=== PATIENT | female | born 1960 | race Caucasian/White ===

== ENCOUNTER 2018-11-25 09:03 | Observation (INO) | payer BC, OTHER ==
--- NOTE | 2018-11-25 10:20 | RAD REPORT ---
EXAM DESCRIPTION: CT - Head Brain Wo Cont - 11/25/2018 10:00 am CLINICAL HISTORY: DIZZINESS Headache, drowsiness, CVA symptomology. COMPARISON: No comparisons TECHNIQUE: All CT scans are performed using dose optimization technique as appropriate and may inclu de automated exposure control or mA/KV adjustment according to patient size. FINDINGS: No intracranial hemorrhage, hydrocephalus or extra-axial fluid collection.No areas of brai n edema or evidence of midline shift. The paranasal sinuses and mastoids are clear. The calvarium is intact. IMPRESSION: No acute intracranial abnormality.
--- NOTE | 2018-11-25 10:22 | RAD REPORT ---
EXAM DESCRIPTION: RAD - Chest Single View - 11/25/2018 10:10 am CLINICAL HISTORY: COUGH Chest pain. COMPARISON: Chest Single View dated 03/03/2016; CHEST PA AND LAT 2 VIEW dated 11/14/2014; CHEST PA AND LAT 2 VIEW dated 02/19/2013; CHEST PA AND LAT 2 VIEW dated 02/03/2013 FINDINGS: Portable technique limits examination quality. Emphysematous changes are present throughout the lungs. Vague area of nodularity is seen in the left upper lobe, which may represent superimposition of bony structures or a small nodule. The heart is no rmal in size. No displaced fractures.Postsurgical changes are present bilaterally. IMPRESSION: No acute intrathoracic process suspected.
[2018-11-25] MEDS ORDERED: ONDANSETRON 4 MG/2 ML VIAL ONE (10:45)
[2018-11-25] MEDS ORDERED: MECLIZINE HCL 12.5 MG TAB ONE ×2 (10:45→20:54)
[2018-11-25] MEDS ORDERED: NA CHLORIDE 0.9% 1,000 ML ONE (10:45)
[2018-11-25] MEDS ORDERED: FOLIC ACID 5 MG/ML VIAL ONE (10:48)
[2018-11-25 10:54] LABS: Absolute Lymphocytes (CBC) 2.1 K/uL (0.7-4.9); Absolute Monocytes 0.5 K/uL (0.1-1.3); Absolute Neutrophil 1.8 K/uL (1.8-8.0); Basophils % 0.7 % (0-1.3); Hematocrit 48.1 % (36.0-45.0); Lymphocytes % 46.7 % (15.3-44.8); MPV 8.4 fL (7.6-11.3); Monocytes % 10.2 % (3.3-12.3)
[2018-11-25 10:55] LABS: Protime INR 1.06
--- NOTE | 2018-11-25 11:03 | RAD REPORT ---
EXAM DESCRIPTION: - CP - 11/25/2018 10:51 am CLINICAL HISTORY: DIZZINESS Headache, drowsiness COMPARISON: No comparisons TECHNIQUE: Real-time sonographic evaluation of both carotid systems was performed. Doppler interroga tion was performed with waveform tracing bilaterally. FINDINGS: Normal high resistance waveforms are noted in both external carotid arteries. The common c arotid arteries and internal carotid arteries show normal low resistance waveforms. No significant plaque formation is seen. Peak systolic and end diastolic velocity values and the ICA/ CCA ratios are in the non-hemodynamically significant range. Antegrade flow seen in both vertebral arteries. IMPRESSION: No significant atherosclerotic changes noted. No evidence of a hemodynamically significant stenosis.
[2018-11-25 11:17] LABS: ALT/SGPT 20 U/L (12-78); AST/SGOT 18 U/L (15-37); Alkaline Phosphatase 48 U/L (45-117); BUN Blood Urea Nitrogen 17 mg/dL (7-18); Bicarbonate 28 mmol/L (21-32); Bilirubin Direct 0.2 mg/dL (0-0.2); Bilirubin Total 0.7 mg/dL (0.2-1.0); Glucose Level 80 mg/dL (74-106); Lipase 130 U/L (73-393); Magnesium 2.1 mg/dL (1.8-2.4); NT PRO-BNP 96 pg/mL (<125); Potassium 3.8 mmol/L (3.5-5.1); Protein, Total 7.9 g/dL (6.4-8.2); Sodium Level 142 mmol/L (136-145); Troponin (Emerg Dept Use Only) < 0.02 ng/mL (0.0-0.045)
[2018-11-25 12:29] LABS: Blood Morphology Comment NOT SEEN (NOT SEEN); Platelet Estimate ADEQ
[2018-11-25] MEDS ORDERED: ASPIRIN 81 MG CHEWABLE TABLET ONE (13:08)
[2018-11-25 13:16] LABS: Urine Blood TRACE (NEG); Urine Glucose NEGATIVE (NEG); Urine Protein TRACE (NEG); Urine Specific Gravity 1.015 (1.005-1.030); Urine pH 8.5 (5.0-7.0)
--- NOTE | 2018-11-25 13:23 | RAD REPORT ---
EXAM DESCRIPTION: MRI - Brain Wo Cont - 11/25/2018 1:06 pm CLINICAL HISTORY: Dizziness COMPARISON: November 25, [address] TECHNIQUE: Axial, sagittal, and coronal magnetic resonance images of the brain were obtained. FINDINGS: A vague 9 millimeter area of increased signal is present within the left cerebellum. Diffusion-weighted/ADC mapping does not reveal evidence of acute infarction. The ventricles are normal caliber. An extra-axial fluid collection is not noted. Mild cerebellar tonsillar ectopia The sinuses and mastoids are clear. IMPRESSION: A vague 9 millimeter area of increased signal within the left cerebellum does not repres ent an acute infarct. It is of uncertain etiology. It may represent an old infarct. It is recommended that the patient have an MRI brain with IV contrast to determine if there is abnormal enhancement to suggest an acute process Mild cerebellar tonsillar ectopia
--- NOTE | 2018-11-25 15:29 | RAD REPORT ---
EXAM DESCRIPTION: MRI - Brain With Cont - 11/25/2018 3:11 pm CLINICAL HISTORY: vertigo;Dizziness Headache, drowsiness COMPARISON: Brain Wo Cont dated 11/25/2018; Head Brain Wo Cont dated 11/25/2018 TECHNIQUE: Multi-sequence, multiplanar MR imaging of the brain was performed with contrast. FINDINGS: The 9 mm area of signal abnormality seen on recent brain MR in the left cerebellar hemisph ere shows mild post-contrast enhancement. This may indicate that it represents an underlying vascular malformation such as DVA. The lesion does not have space-occupying masslike characteristics, however , a follow-up brain MRI with contrast is recommended in 6 months to ensure stability.
--- NOTE | 2018-11-25 15:43 | EDPHYS ---
Physician Documentation [facility] Name: Mikey Muniz Age: 58 yrs Sex: Female : 1960 Arrival Date: 11/25/2018 Time: 09:05 Bed 6 Private MD: Aries Lopez ED Physician Cristino Barone HPI: 11/25 09:51 This 58 yrs old Female presents to ER via Ambulatory with complaints of judie Vertigo, Heart racing, Facial Numbness. 09:51 The patient complains of pain to the forehead, left temporal area and right temporal judie area. The patient describes the headache as aching. Onset: The symptoms/episode began/occurred 2 day(s) ago. The patient presents with dizziness, sense of spinning. Onset: The symptoms/episode began/occurred 2 day(s) ago. Context: occurred at an unknown location. Associated signs and symptoms: The patient has no apparent associated signs or symptoms. Severity of symptoms: At its worst the pain was mild, in the emergency department the pain is unchanged. Historical: - Allergies: 09: Augmentin; sg 09:23 Codeine; sg 09:23 Demerol; sg 09:23 Morphine; sg 09:23 [place]; sg - Home Meds: :27 gabapentin 300 mg oral cap 1 cap at night for Neuropathic Pain [Active]; Humira Pen sg subcutaneous subcutaneous [Active]; hydroxychloroquine 200 mg oral tab 1 tab once daily [Active]; pantoprazole 40 mg oral TbEC 1 tab once daily [Active]; Prolia subcutaneous subcutaneous [Active]; exemestane oral oral [Active]; - PMHx: 09:23 Ankylosing Spondylitis; Cancer, Breast; neuropathy; Ovarian cyst; sg - PSHx: 09:23 Hysterectomy; Tonsillectomy; Mastectomy, Left; Mastectomy, Right; left knee; D \T\ C; sg left ear; - Immunization history:: Adult Immunizations up to date. - Social history:: Smoking status: Patient/guardian denies using tobacco. - Ebola Screening: : Patient negative for fever greater than or equal to 101.5 degrees Fahrenheit, and additional compatible Ebola Virus Disease symptoms Patient denies exposure to infectious person Patient denies travel to an Ebola-affected area in the 21 days before illness onset No symptoms or risks identified at this time. - Family history:: not pertinent. ROS: 09:51 Constitutional: Negative for fever, chills, and weight loss, Eyes: Negative for injury, judie pain, redness, and discharge, ENT: Negative for injury, pain, and discharge, Neck: Negative for injury, pain, and swelling, Cardiovascular: Negative for chest pain, palpitations, and edema, Respiratory: Negative for shortness of breath, cough, wheezing, and pleuritic chest pain, Abdomen/GI: Negative for abdominal pain, nausea, vomiting, diarrhea, and constipation, Back: Negative for injury and pain, : Negative for injury, bleeding, discharge, and swelling, MS/Extremity: Negative for injury and deformity, Skin: Negative for injury, rash, and discoloration, Psych: Negative for depression, anxiety, suicide ideation, homicidal ideation, and hallucinations, Allergy/Immunology: Negative for hives, rash, and allergies, Endocrine: Negative for neck swelling, polydipsia, polyuria, polyphagia, and marked weight changes, Hematologic/Lymphatic: Negative for swollen nodes, abnormal bleeding, and unusual bruising. 09:51 Neuro: Positive for dizziness. Exam: 09:51 Constitutional: This is a well developed, well nourished patient who is awake, alert, judie and in no acute distress. Head/Face: Normocephalic, atraumatic. Eyes: Pupils equal round and reactive to light, extra-ocular motions intact. Lids and lashes normal. Conjunctiva and sclera are non-icteric and not injected. Cornea within normal limits. Periorbital areas with no swelling, redness, or edema. ENT: Nares patent. No nasal discharge, no septal abnormalities noted. Tympanic membranes are normal and external auditory canals are clear. Oropharynx with no redness, swelling, or masses, exudates, or evidence of obstruction, uvula midline. Mucous membranes moist. Neck: Trachea midline, no thyromegaly or masses palpated, and no cervical lymphadenopathy. Supple, full range of motion without nuchal rigidity, or vertebral point tenderness. No Meningismus. Chest/axilla: Normal chest wall appearance and motion. Nontender with no deformity. No lesions are appreciated. Cardiovascular: Regular rate and rhythm with a normal S1 and S2. No gallops, murmurs, or rubs. Normal PMI, no JVD. No pulse deficits. Respiratory: Lungs have equal breath sounds bilaterally, clear to auscultation and percussion. No rales, rhonchi or wheezes noted. No increased work of breathing, no retractions or nasal flaring. Abdomen/GI: Soft, non-tender, with normal bowel sounds. No distension or tympany. No guarding or rebound. No evidence of tenderness throughout. Back: No spinal tenderness. No costovertebral tenderness. Full range of motion. Skin: Warm, dry with normal turgor. Normal color with no rashes, no lesions, and no evidence of cellulitis. MS/ Extremity: Pulses equal, no cyanosis. Neurovascular intact. Full, normal range of motion. Neuro: Awake and alert, GCS 15, oriented to person, place, time, and situation. Cranial nerves II-XII grossly intact. Motor strength 5/5 in all extremities. Sensory grossly intact. Cerebellar exam normal. Normal gait. Psych: Awake, alert, with orientation to person, place and time. Behavior, mood, and affect are within normal limits. Vital Signs: 09:21 BP 171 / 114; Pulse 86; Resp 17; Temp 97.5; Pulse Ox 100% on R/A; sg 11:30 BP 142 / 92; Pulse 77; Resp 16; Temp 97.6; Pulse Ox 100% on R/A; sg 13:20 sg 14:30 BP 135 / 89; Pulse 72; Resp 14; Pulse Ox 99% on R/A; sg 15:37 BP 110 / 83; Pulse 76; Resp 16; Pulse Ox 98% on R/A; sg 16:19 BP 124 / 97; Pulse 82; Resp 17; Pulse Ox 100% on R/A; sg 19:20 BP 127 / 92; Pulse 76; Resp 18; Pulse Ox 99% on R/A; ao 20:20 BP 120 / 87; Pulse 72; Resp 18; Pulse Ox 99% on R/A; ao 21:08 BP 118 / 84; Pulse 74; Resp 14; Temp 98.2(O); Pulse Ox 100% on R/A; Pain 0/10; ao 13:20 pt remains off the unit in MRI at this [facility] NIH Stroke Scale Scores: 09:51 NIHSS Score: 0 judie MDM: 09:10 Patient medically screened. [facility] [place] 09:54 Data reviewed: vital signs, nurses notes, lab test result(s), EKG, radiologic studies, [facility] [place] CT scan, plain films. 11/25 09:31 Order name: Basic Metabolic Panel; Complete Time: 11:49 [facility] [place] 11/25 09:31 Order name: CBC with Diff; Complete Time: 12:33 [facility] [place] 11/25 09:31 Order name: LFT's; Complete Time: 11:49 [facility] [place] 11/25 09:31 Order name: Magnesium; Complete Time: 11:49 [facility] [place] 11/25 09:31 Order name: NT PRO-BNP; Complete Time: 11:49 [facility] [place] 11/25 09:31 Order name: PT-INR; Complete Time: 11:05 [facility] [place] 11/25 09:31 Order name: Troponin (emerg Dept Use Only); Complete Time: 11:49 [facility] [place] 11/25 09:31 Order name: Lipase; Complete Time: 11:49 [facility] [place] 11/25 09:31 Order name: Urine Culture [facility] [place] 11/25 09:31 Order name: TSH; Complete Time: 11:49 [facility] [place] 11/25 10:55 Order name: Flu; Complete Time: 11:49 11/25 10:59 Order name: Manual Differential; Complete Time: 12:33 [facility] 11/25 12:55 Order name: Urine Dipstick--Ancillary (enter results); Complete Time: 13:20 bd 11/25 19:26 Order name: Creatine Phosphokinase [facility] 11/25 09:31 Order name: XRAY Chest (1 view); Complete Time: 11:05 [facility] [place] 11/25 09:31 Order name: EKG; Complete Time: 09:32 [facility] [place] 11/25 09:31 Order name: CT Head Brain wo Cont; Complete Time: 11:05 [facility] [place] 11/25 09:49 Order name: US Carotid Artery Bilateral; Complete Time: 11:05 [facility] [place] 11/25 11:13 Order name: Brain Wo Cont; Complete Time: 13:36 EDDC 11/25 13:38 Order name: Brain With Cont MRI; Complete Time: 15:33 [facility] [place] 11/25 17:38 Order name: Diet Regular; Complete Time: 17:39 sg 11/25 19:26 Order name: CKMB Creatine Kinase MB [facility] 11/25 19:26 Order name: Troponin I [facility] 11/25 09:31 Order name: Cardiac monitoring; Complete Time: 11:41 [facility] [place] 11/25 09:31 Order name: EKG - Nurse/Tech; Complete Time: 14:48 [facility] [place] 11/25 09:31 Order name: IV Saline Lock; Complete Time: 10:45 [facility] [place] 11/25 09:31 Order name: Labs collected and sent; Complete Time: 10:31 [facility] [place] 11/25 09:31 Order name: O2 Per Protocol; Complete Time: 10:31 [facility] [place] 11/25 09:31 Order name: O2 Sat Monitoring; Complete Time: 10:31 [facility] [place] 11/25 09:31 Order name: Urine Dipstick-Ancillary (obtain specimen); Complete Time: 14:24 [facility] [place] 11/25 11:07 Order name: Vital Signs; Complete Time: 11:23 [facility] [place] Administered Medications: 10:50 Drug: NS 0.9% 1000 ml Route: IV; Rate: 125 ml/hr; Site: right antecubital; sg 20:37 Follow up: IV Status: Infusion continued upon admission ao 10:50 Drug: Zofran 4 mg Route: IVP; Site: right antecubital; sg 12:14 Follow up: Response: No adverse reaction; Nausea is decreased sg 11:02 Drug: foLIC Acid 1 mg Route: IVPB; Site: right antecubital; sg 20:38 Follow up: IV Status: Completed infusion ao 11:20 Drug: Meclizine 25 mg Route: PO; sg 12:15 Follow up: Response: No adverse reaction; No change in condition sg 13:37 Drug: Aspirin 162 mg Route: PO; sg 20:38 Follow up: Response: No adverse reaction ao 21:05 Drug: Meclizine 25 mg Route: PO; ao 21:05 Follow up: Response: Follow up upon admission ao Disposition: 11/25/18 16:04 Hospitalization ordered by Tera Vallejo for Observation. 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 - Bed requested for Telemetry/MedSurg (observation). - Status is Observation. ao - Condition is Fair. - Problem is new. - Symptoms are unchanged. UTI on Admission? No NIH Stroke Scale - NIH Stroke Score Date: 11/25/2018 Time: 09:51 Total Score = 0 1a. Level of Consciousness (LOC) - 0(Alert) 1b. Level of Consciousness (LOC) (Year \T\ Age) - 0(Both) 1c. LOC Commands (Open \T\ Closes Eyes/Fishing Lure Assembler) - 0(Both) 2. Best Gaze (Lateral Gaze Paresis) - 0(Normal) 3. Visual Field Loss - 0(No visual loss) 4. Facial Palsy - 0(Normal) 5a. Left Arm: Motor (10-second hold) - 0(No drift) 5b. Right Arm: Motor (10-second hold) - 0(No drift) 6a. Left Leg: Motor (5-second hold - always test supine) - 0(No drift) 6b. Right Leg: Motor (5-second hold - always test supine) - 0(No drift) 7. Limb Ataxia (finger/nose \T\ heel/cifuentes - test with eyes open) - 0(Absent) 8. Sensory Loss (pinprick arms/legs/face) - 0(Normal) 9. Best Language: Aphasia (description/naming/reading) - 0(No aphasia) 10. Dysarthria (speech clarity - read or repeat words) - 0(Normal) 11. Extinction and Inattention (visual/tactile/auditory/spatial/personal) - 0(No abnormality) Initials: judie Signatures: Dispatcher [employer] [facility] Nessa Santillan RN RN mw Woody, Diana, RN RN dw Gay, Steven, RN RN sg Anderson, Corey, MD MD cha Ortiz, Alex RN RN ao Corrections: (The following items were deleted from the chart) 11:12 09:54 MR STROKE PROTOCOL+MRI.RAD.SUSAN ordered. [facility] 16:00 15:42 11/25/2018 15:42 Discharged to Home. Impression: Palpitations; judie Vertiginous syndromes in diseases classified elsewhere; Essential (primary) hypertension; Abnormal brain scan. Condition is Stable. Discharge Instructions: Dizziness, Hypertension, Palpitations, Vertigo, Hypertension, [id number], Vertigo, Arug-ne-Reuk, Aspirin and Your Heart, Palpitations, [id number], Dizziness, Oije-al-[id number], Managing Your Hypertension. Prescriptions for Meclizine 25 mg Oral Tablet - take 1 tablet by ORAL route every 8 hours As needed; 30 tablet, Norvasc 5 mg Oral Tablet - take 1 tablet by ORAL route once daily; 20 tablet. and Forms are Medication Reconciliation Form, Thank You Letter, Antibiotic Education, Prescription Opioid Use. Follow up: Aries Lopez; When: 2 - 3 days; Reason: Recheck today's complaints, Continuance of care, Re-evaluation by your physician. Follow up: Terrance Chery; When: 2 - 3 days; Reason: Recheck today's complaints, Continuance of care, Re-evaluation by your physician. Problem is new. Symptoms have improved. judie 19:44 16:04 Hospitalization Ordered by Tera Vallejo DO for Observation. 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 Bed requested for Telemetry/MedSurg (observation). Status is Observation. Condition is Fair. Problem is new. Symptoms are unchanged. UTI on Admission? No. judie 20:22 19:44 11/25/2018 16:04 Hospitalization Ordered by Tera Vallejo DO for mw Observation. 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 Bed requested for Telemetry/MedSurg (observation). Status is Observation. Condition is Fair. Problem is new. Symptoms are unchanged. UTI on Admission? No. dw 21:32 20:22 11/25/2018 16:04 Hospitalization Ordered by Tera Vallejo DO for ao Observation. 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 Bed requested for Telemetry/MedSurg (observation). Status is Observation. Condition is Fair. Problem is new. Symptoms are unchanged. UTI on Admission? No. mw
--- NOTE | 2018-11-25 15:43 | ER ---
Nurse's Notes [facility] Name: Mikey Muniz Age: 58 yrs Sex: Female : 1960 Arrival Date: 11/25/2018 Time: 09:05 Bed 6 Private MD: Aries Lopez Diagnosis: Vertiginous syndromes in diseases classified elsewhere-intractable;Vomiting;Essential (primary) hypertension;Abnormal brain scan-mri w/ w/o Presentation: 11/25 09:17 Presenting complaint: Patient states: Numbness to mouth and left lower face that sg started yesterday morning around 0700 took a meclizine and gabapentin but no improvement, dizziness and vertigo that started Sunday morning has happened before and it was due to drainage in the Ear, Saw and told her ears looked fine and wanted a follow up with and a scaffolder. This morning I had a headache that has not gotten any better, also has nausea today. Transition of care: patient was not received from another setting of care. Onset of symptoms was November 25, 2018. Risk Assessment: Do you want to hurt yourself or someone else? Patient reports no desire to harm self or others. Initial Sepsis Screen: Does the patient meet any 2 criteria? No. Patient's initial sepsis screen is negative. Does the patient have a suspected source of infection? No. Patient's initial sepsis screen is negative. Care prior to arrival: None. 09:17 Method Of Arrival: Ambulatory sg 09:17 Acuity: YUE 3 sg Historical: - Allergies: 09: Augmentin; sg 09:23 Codeine; sg :23 Demerol; sg 09:23 Morphine; sg 09:23 [place]; sg - Home Meds: : gabapentin 300 mg oral cap 1 cap at night for Neuropathic Pain [Active]; Humira Pen sg subcutaneous subcutaneous [Active]; hydroxychloroquine 200 mg oral tab 1 tab once daily [Active]; pantoprazole 40 mg oral TbEC 1 tab once daily [Active]; Prolia subcutaneous subcutaneous [Active]; exemestane oral oral [Active]; - PMHx: 09:23 Ankylosing Spondylitis; Cancer, Breast; neuropathy; Ovarian cyst; sg - PSHx: 09:23 Hysterectomy; Tonsillectomy; Mastectomy, Left; Mastectomy, Right; left knee; D \T\ C; sg left ear; - Immunization history:: Adult Immunizations up to date. - Social history:: Smoking status: Patient/guardian denies using tobacco. - Ebola Screening: : Patient negative for fever greater than or equal to 101.5 degrees Fahrenheit, and additional compatible Ebola Virus Disease symptoms Patient denies exposure to infectious person Patient denies travel to an Ebola-affected area in the 21 days before illness onset No symptoms or risks identified at this time. - Family history:: not pertinent. Screenin:25 Abuse screen: Denies threats or abuse. Denies injuries from another. Nutritional hb screening: No deficits noted. Tuberculosis screening: No symptoms or risk factors identified. Fall Risk None identified. Assessment: 09:45 General: Appears in no apparent distress. well groomed, well developed, well nourished, sg Behavior is calm, cooperative, appropriate for age. Pain: Denies pain. Neuro: Level of Consciousness is awake, alert, obeys commands, Oriented to person, place, time, situation, Manager [employer] Services are equal bilaterally Moves all extremities. Full function Speech is normal, Facial symmetry appears normal, Reports dizziness. Cardiovascular: Heart tones S1 S2 present Capillary refill is brisk in bilateral fingers Patient's skin is warm and dry. Chest pain is denied. Respiratory: Airway is patent Respiratory effort is even, unlabored, Respiratory pattern is regular, symmetrical. GI: Abdomen is round non-distended, Reports nausea, tolerance of fluids, tolerance of food. : No signs and/or symptoms were reported regarding the genitourinary system. EENT: No signs and/or symptoms were reported regarding the EENT system. Derm: Skin is pink, warm \T\ dry. Musculoskeletal: No signs and/or symptoms reported regarding the musculoskeletal system. 10:45 Reassessment: Patient appears in no apparent distress at this time. Patient and/or sg family updated on plan of care and expected duration. Pain level reassessed. Patient is alert, oriented x 3, equal unlabored respirations, skin warm/dry/pink. 11:45 Reassessment: Patient appears in no apparent distress at this time. Patient and/or sg family updated on plan of care and expected duration. Pain level reassessed. Patient is alert, oriented x 3, equal unlabored respirations, skin warm/dry/pink. 12:42 Reassessment: Patient appears in no apparent distress at this time. Patient and/or sg family updated on plan of care and expected duration. Pain level reassessed. Patient is alert, oriented x 3, equal unlabored respirations, skin warm/dry/pink. pt continues to complain of dizziness at this time, pt states the meclizine has helped slightly but there has been no relief in the symptoms Patient states symptoms have not improved. 13:40 Reassessment: Patient appears in no apparent distress at this time. Patient and/or sg family updated on plan of care and expected duration. Pain level reassessed. Patient is alert, oriented x 3, equal unlabored respirations, skin warm/dry/pink. Reassessment: Patient states symptoms have not improved. 14:30 Reassessment: Patient appears in no apparent distress at this time. No changes from hb previously documented assessment. Patient and/or family updated on plan of care and expected duration. Pain level reassessed. Patient is alert, oriented x 3, equal unlabored respirations, skin warm/dry/pink. 15:30 Reassessment: Patient appears in no apparent distress at this time. No changes from hb previously documented assessment. Patient and/or family updated on plan of care and expected duration. Pain level reassessed. Patient is alert, oriented x 3, equal unlabored respirations, skin warm/dry/pink. 16:30 Reassessment: Patient appears in no apparent distress at this time. No changes from hb previously documented assessment. Patient and/or family updated on plan of care and expected duration. Pain level reassessed. Patient is alert, oriented x 3, equal unlabored respirations, skin warm/dry/pink. 19:20 General: Appears in no apparent distress. well groomed, well developed, well nourished, ao Behavior is calm, cooperative, appropriate for age. Pain: Denies pain. Neuro: Level of Consciousness is awake, alert, obeys commands, Oriented to person, place, time, situation. Cardiovascular: Capillary refill < 3 seconds Patient's skin is warm and dry. Respiratory: Airway is patent Respiratory effort is even, unlabored, Respiratory pattern is regular, symmetrical. GI: Abdomen is round non-distended. : No signs and/or symptoms were reported regarding the genitourinary system. EENT: No signs and/or symptoms were reported regarding the EENT system. 20:40 Reassessment: Patient o be admitted. To called report . Reassessment: Called report but ao was on hold for a while and had to hand off due to a critical patient in ED. will call back again. 21:11 Reassessment: report called to [facility] for room 228. bb Vital Signs: 09:21 BP 171 / 114; Pulse 86; Resp 17; Temp 97.5; Pulse Ox 100% on R/A; sg 11:30 BP 142 / 92; Pulse 77; Resp 16; Temp 97.6; Pulse Ox 100% on R/A; sg 13:20 sg 14:30 BP 135 / 89; Pulse 72; Resp 14; Pulse Ox 99% on R/A; sg 15:37 BP 110 / 83; Pulse 76; Resp 16; Pulse Ox 98% on R/A; sg 16:19 BP 124 / 97; Pulse 82; Resp 17; Pulse Ox 100% on R/A; sg 19:20 BP 127 / 92; Pulse 76; Resp 18; Pulse Ox 99% on R/A; ao 20:20 BP 120 / 87; Pulse 72; Resp 18; Pulse Ox 99% on R/A; ao 21:08 BP 118 / 84; Pulse 74; Resp 14; Temp 98.2(O); Pulse Ox 100% on R/A; Pain 0/10; ao 13:20 pt remains off the unit in MRI at this josh NIH Stroke Scale Scores: 09:51 NIHSS Score: 0 [facility] ED Course: 09:05 Patient arrived in ED. mr 09:06 Aries Lopez MD is Private Physician. mr 09:10 Cristino Barone MD is Attending Physician. [facility] 09:17 Timoteo Hill, YASMANI is Primary Nurse. sg 09:21 Triage completed. sg 09:23 Arm band placed on. sg 09:45 Patient has correct armband on for positive identification. Bed in low position. Call sg light in reach. Side rails up X2. clinical research monitor on. Pulse ox on. NIBP on. Warm blanket given. Head of bed elevated. 09:52 EKG done, by public works technician. reviewed by Cristino Barone MD. at1 09:59 CT completed. Patient tolerated procedure well. Patient moved to CT via wheelchair. sj Patient taken to ultrasound. Patient moved back from CT. 10:01 CT Head Brain wo Cont In Process Unspecified. EDMS 10:03 X-ray completed. Portable x-ray completed in exam room. Patient tolerated procedure mh1 well. 10:07 XRAY Chest (1 view) In Process Unspecified. EDMS 10:16 US Carotid Artery Bilateral In Process Unspecified. EDMS 10:45 Initial lab(s) drawn, by me, sent to lab. Inserted saline lock: 20 gauge in right em1 antecubital area, using aseptic technique. Blood collected. 12:51 Patient moved to MRI via wheelchair. em2 13:06 Brain Wo Cont In Process Unspecified. EDMS 13:28 MRI completed. Patient tolerated well. Patient moved back from MRI. em2 15:00 Patient moved to MRI via wheelchair. em2 15:10 Brain With Cont MRI In Process Unspecified. EDMS 15:11 MRI completed. Patient tolerated well. em2 15:30 Patient moved back from MRI. em2 15:40 Aries Lopez MD is Referral Physician. judie 15:42 Terrance Chery MD is Referral Physician. judie 16:02 Tera Vallejo DO is Hospitalizing Provider. judie 19:07 No provider procedures requiring assistance completed. Patient admitted, IV remains in hb place. Administered Medications: 10:50 Drug: NS 0.9% 1000 ml Route: IV; Rate: 125 ml/hr; Site: right antecubital; sg 20:37 Follow up: IV Status: Infusion continued upon admission ao 10:50 Drug: Zofran 4 mg Route: IVP; Site: right antecubital; sg 12:14 Follow up: Response: No adverse reaction; Nausea is decreased sg 11:02 Drug: foLIC Acid 1 mg Route: IVPB; Site: right antecubital; sg 20:38 Follow up: IV Status: Completed infusion ao 11:20 Drug: Meclizine 25 mg Route: PO; sg 12:15 Follow up: Response: No adverse reaction; No change in condition sg 13:37 Drug: Aspirin 162 mg Route: PO; sg 20:38 Follow up: Response: No adverse reaction ao 21:05 Drug: Meclizine 25 mg Route: PO; ao 21:05 Follow up: Response: Follow up upon admission ao Outcome: 15:42 Discharge ordered by . judie 16:04 Decision to Hospitalize by Provider. judie 19:07 Admitted to ER Hold. Please see [facility] for further documentation. hb 19:07 Condition: stable 19:07 Instructed on the need for admit, Demonstrated understanding of instructions. 21:32 Patient left the ED. yaneth NIH Stroke Scale - NIH Stroke Score Date: 11/25/2018 Time: 09:51 Total Score = 0 1a. Level of Consciousness (LOC) - 0(Alert) 1b. Level of Consciousness (LOC) (Year \T\ Age) - 0(Both) 1c. LOC Commands (Open \T\ Closes Eyes/Break Up Worker) - 0(Both) 2. Best Gaze (Lateral Gaze Paresis) - 0(Normal) 3. Visual Field Loss - 0(No visual loss) 4. Facial Palsy - 0(Normal) 5a. Left Arm: Motor (10-second hold) - 0(No drift) 5b. Right Arm: Motor (10-second hold) - 0(No drift) 6a. Left Leg: Motor (5-second hold - always test supine) - 0(No drift) 6b. Right Leg: Motor (5-second hold - always test supine) - 0(No drift) 7. Limb Ataxia (finger/nose \T\ heel/cifuentes - test with eyes open) - 0(Absent) 8. Sensory Loss (pinprick arms/legs/face) - 0(Normal) 9. Best Language: Aphasia (description/naming/reading) - 0(No aphasia) 10. Dysarthria (speech clarity - read or repeat words) - 0(Normal) 11. Extinction and Inattention (visual/tactile/auditory/spatial/personal) - 0(No abnormality) Initials: [facility] Signatures: Dispatcher [employer] EDMS Timoteo Hill RN RN sg Anderson, Corey, MD MD cha Rivera, Anjelica Remy Galdamezha 1 Yessenia Rivero Brenda, RN RN bb Martinez, Eric em1 Chema Castillo2 Gin Castillo, psychology technician EKG Tat1 Onesimo Arias RN RN ao Baxter, Heather, RN RN Corrections: (The following items were deleted from the chart) 12:14 11:50 Response: No adverse reaction sg 12:16 12:15 Response: No adverse reaction sg sg
--- NOTE | 2018-11-25 16:42 | P.HP ---
Patient History Date of Service: 11/25/18 Primary Care Provider: Dr. Lopez; Neurology-Dr. Chery; GI-Dr. Mujica Reason for admission: Falls, vertigo History of Present Illness: 58-year-old female presented to the emergency room with increased falls and vertigo. This all started on Sunday and got worse. She took some meclizine without any relief. Patient reports increased nausea but no vomiting. Patient is seen by a neurology as an outpatient due to her history of TIA in the past. Patient with history of breast cancer and ankylosing spondylitis. She is seen by GI and Rheumatology. In the ER patient was evaluated. CBC unremarkable. BMP stable. Cardiac enzymes unremarkable. Tsh within normal limits. Urinalysis unremarkable. CT scan showed no acute changes. MRI shows 9 mm area of signal abnormality in the left cerebellum. This likely indicates underlying vascular malformation. This is not have space occupying mass like features. Due to her vertigo patient was admitted for observation. When I saw all the patient ER, she appeared improved. She reported some mild nausea but no vomiting. No significant chest pain or shortness of breath. Blood pressure slightly elevated. She reports that her blood pressures are normally in the 90s systolic range. Allergies codeine Allergy (Intermediate, Verified 03/05/16 19:20) Nausea/Vomiting amoxicillin trihydrate [From Augmentin] Allergy (Verified 03/03/16 20:07) Nausea/Vomiting hydrocodone Allergy (Verified 03/03/16 20:07) Rash lorazepam [From Ativan] Allergy (Verified 03/03/16 20:07) Nausea/Vomiting potassium clavulanate [From Augmentin] Allergy (Verified 03/03/16 20:07) Nausea/Vomiting meperidine HCl [From Demerol] Adverse Reaction (Verified 03/03/16 20:07) Shortness of breath morphine Adverse Reaction (Verified 03/03/16 20:07) Shortness of breath Home Medications: Gabapentin [Neurontin*] 200 mg PO BEDTIME 03/03/16 Cefdinir [Omnicef] 300 mg PO BID #14 capsule 03/07/16 metroNIDAZOLE [Flagyl] 250 mg PO Q8H #21 tablet 03/07/16 - Past Medical/Surgical History Diabetic: No -: History breast cancer -: History hypoglycemia -: Neuropathy -: Osteoporosis -: History TIA -: GERD -: Ankylosing spondylitis -: History of diverticulitis -: dental implants 2012 -: hysterectomy 1996 -: anal fissure/hemorroid surgery 1994 -: radial keratotomy 1980 -: removal of ovarian cyst 1979 -: appedectomy 1979 -: bilateral mastectomy -: tonsillectomy 1966 Psychosocial/ Personal History: Patient is . She has 2 children. She works part-time - Family History Mother -: GI disease, Diabetes, Other (see notes) Notes: ITP Brother -: GI disease Notes: IBS. Chron's. Gallstones - Social History Smoking Status: Never smoker Alcohol use: No CD- Drugs: No Caffeine use: Yes Place of Residence: Home Review of Systems General: As per HPI Eyes: Unremarkable ENT: Unremarkable Respiratory: Unremarkable Cardiovascular: Light Headedness, As per HPI Gastrointestinal: Nausea, As per HPI Genitourinary: Unremarkable Musculoskeletal: Unremarkable Integumentary: Unremarkable Neurological: As per HPI Lymphatics: Unremarkable Physical Examination - Physical Exam General: Alert, In no apparent distress, Oriented x3, Cooperative HEENT: Atraumatic, Normocephalic, PERRLA, Mucous membr. moist/pink Neck: Supple, No Thyromegaly Respiratory: Clear to auscultation bilaterally, Normal air movement Cardiovascular: Normal pulses, Regular rate/rhythm Gastrointestinal: Normal bowel sounds, Soft and benign, Non-distended, No tenderness, No masses, No rebound, No guarding Musculoskeletal: No contractures, No erythema, No tenderness, No warmth Integumentary: No erythema, No warmth, No cyanosis, Tenderness/swelling (Mild edema to the lower extremities) Neurological: Normal speech, Normal strength at 5/5 x4 extr, Normal tone, Normal affect - Studies Laboratory Data (last 24 hrs) 11/25/18 10:40: PT 12.5, INR 1.06 11/25/18 10:40: WBC 4.5, Hgb 16.1 H, Hct 48.1 H, Plt Count 252 11/25/18 10:40: Sodium 142, Potassium 3.8, BUN 17, Creatinine 0.80, Glucose 80, Magnesium 2.1, Total Bilirubin 0.7, AST 18, ALT 20, Alkaline Phosphatase 48, Lipase 130 Microbiology Data (last 24 hrs): 11/25/18 11:15 Nasopharnyx Influenza Type A Antigen Screen - Final 11/25/18 11:15 Nasopharnyx Influenza Type B Antigen Screen - Final Assessment and Plan - Plan Impression: Vertigo with noted MRI showing 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 Will have physical therapy assess ambulation. Patient is seen by neurology. Will consult neurology to further evaluate and make recommendations. Will start aspirin and Lipitor. Will check fasting lipid panel. Will monitor on telemetry and cardiac enzymes. Will obtain echocardiogram. Carotid Doppler shows no acute changes. Will start DVT prophylaxis-Lovenox. Will provide meclizine as needed for vertigo. Will make sure patient is safe to go home in the next 24 hr. Anticipate discharge tomorrow significantly improved. Patient will need follow up with neurology with repeat MRI in 3-6 months to monitor stability of vascular malformation. History of TIA: Continue as above. History of breast cancer: Stable. GERD: Will continue with Protonix. Patient is seen by GI as an outpatient. Ankylosing spondylitis: Will review and restart home medication. Patient is seen by rheumatology as an outpatient. Discharge Plan: Home Plan to discharge in: 24 Hours - Advance Directives Does patient have a Living Will: No Does patient have a Durable POA for Healthcare: Yes - Code Status/Comfort Care Code Status Assessed: Yes (Patient full code.) Time Spent Managing Pts Care (In Minutes): 55
[2018-11-25] MEDS ORDERED: ACETAMINOPHEN 500 MG TAB PO PRN (17:07)
[2018-11-25] MEDS: NA CHLORIDE 0.9% 1,000 ML IV SCH (17:07)
[2018-11-25] MEDS ORDERED: ONDANSETRON 4 MG/2 ML VIAL IV PRN (17:07)
[2018-11-25] MEDS ORDERED: MECLIZINE HCL 12.5 MG TAB PO PRN (17:07)
[2018-11-25 19:25] LABS: CKMB Creatine Kinase MB < 1.0 ng/mL (0.3-3.6); Creatine Phosphokinase 83 U/L (26-192); Troponin I < 0.02 ng/mL (0.0-0.045)
[2018-11-25] MEDS ORDERED: ATORVASTATIN 40 MG TAB PO SCH (21:00)
[2018-11-25] MEDS ORDERED: GABAPENTIN 300 MG CAP PO SCH (21:00)
[2018-11-25] MEDS ORDERED: GABAPENTIN 100 MG CAP PO SCH (21:00)
[2018-11-25 22:35] VITALS: BMI 21.6
[2018-11-26] MEDS: NA CHLORIDE 0.9% 1,000 ML IV SCH (04:41)
[2018-11-26 04:45] LABS: Absolute Lymphocytes (CBC) 2.4 K/uL (0.7-4.9); Absolute Monocytes 0.5 K/uL (0.1-1.3); Absolute Neutrophil 2.1 K/uL (1.8-8.0); Basophils % 0.9 % (0-1.3); Eosinophils % 2.3 % (0-4.4); Hematocrit 40.7 % (36.0-45.0); Lymphocytes % 46.6 % (15.3-44.8); MPV 8.5 fL (7.6-11.3); Monocytes % 10.5 % (3.3-12.3); RBC Red Blood Cell Count 4.49 M/uL (3.86-4.86)
[2018-11-26 04:51] LABS: Potassium 4.1 mmol/L (3.5-5.1)
[2018-11-26 04:55] LABS: CKMB Creatine Kinase MB < 1.0 ng/mL (0.3-3.6); Creatine Phosphokinase 66 U/L (26-192); Troponin I < 0.02 ng/mL (0.0-0.045)
[2018-11-26] MEDS ORDERED: PANTOPRAZOLE 40MG TABLET PO SCH (06:30)
--- NOTE | 2018-11-26 08:47 | P.DS ---
Admission Date: 11/25/18 Discharge Date: 11/26/18 Primary Care Provider: Dr. Lopez; Neurology-Dr. Chery; GI-Dr. Mujica Disposition: ROUTINE DISCHARGE Discharge Condition: GOOD Reason for Admission: Falls, vertigo Consultations: none Procedures: Brain CT: FINDINGS: No intracranial hemorrhage, hydrocephalus or extra-axial fluid collection.No areas of brain edema or evidence of midline shift. The paranasal sinuses and mastoids are clear. The calvarium is intact. IMPRESSION: No acute intracranial abnormality. Brain MRI: FINDINGS: The 9 mm area of signal abnormality seen on recent brain MR in the left cerebellar hemisphere shows mild post-contrast enhancement. This may indicate that it represents an underlying vascular malformation such as DVA. The lesion does not have space-occupying masslike characteristics, however, a follow-up brain MRI with contrast is recommended in 6 months to ensure stability Carotid doppler: FINDINGS: Normal high resistance waveforms are noted in both external carotid arteries. The common carotid arteries and internal carotid arteries show normal low resistance waveforms. No significant plaque formation is seen. Peak systolic and end diastolic velocity values and the ICA/CCA ratios are in the non-hemodynamically significant range. Antegrade flow seen in both vertebral arteries. IMPRESSION: No significant atherosclerotic changes noted. No evidence of a hemodynamically significant stenosis Medical problem list: Vertigo with noted MRI showing 9 mm area of signal abnormality in the left cerebellar hemisphere likely underlying vascular malformation Hyperlipidemia History of TIA History of breast cancer GERD Ankylosing spondylitis Brief History of Present Illness: 58-year-old female presented to the emergency room with increased falls and vertigo. This all started on Sunday and got worse. She took some meclizine without any relief. Patient reports increased nausea but no vomiting. Patient is seen by a neurology as an outpatient due to her history of TIA in the past. Patient with history of breast cancer and ankylosing spondylitis. She is seen by GI and Rheumatology. In the ER patient was evaluated. CBC unremarkable. BMP stable. Cardiac enzymes unremarkable. Tsh within normal limits. Urinalysis unremarkable. CT scan showed no acute changes. MRI shows 9 mm area of signal abnormality in the left cerebellum. This likely indicates underlying vascular malformation. This is not have space occupying mass like features. Due to her vertigo patient was admitted for observation. When I saw all the patient ER, she appeared improved. She reported some mild nausea but no vomiting. No significant chest pain or shortness of breath. Blood pressure slightly elevated. She reports that her blood pressures are normally in the 90s systolic range. Hospital Course: Patient presented with vertigo and recent fall. Patient was further evaluated. MRI with contrast showed 9 mm area of signal abnormality in the left cerebellar hemisphere. This is likely vascular malformation. No space occupying masslike characteristics were identified. Patient was monitored overnight. LDL slightly elevated. Case discussed at length with Neurology who she sees as an outpatient. At discharge dizziness improved. She was able to ambulate appropriately. At discharge patient will continue with fall precautions. At discharge she will continue with aspirin 81 mg daily, folic acid 1 mg daily, and Lipitor 40 mg daily. Recommend to follow up with Neurology later today to further address the vascular malformation. Patient will likely require neurovascular evaluation as an outpatient which will include 4 vessel angiogram to further assess the malformation an to monitor stability. This will have to be done at a higher level care center. Patient with hyperlipidemia. Recommend to maintain LDL less than 70. At discharge patient will continue with Lipitor 40 mg daily. Patient with history of TIA. Patient will continue with aspirin 81 mg daily and folic acid 1 mg daily. Patient with history of breast cancer. She will continue with her current medication. Patient with GERD. Patient will continue with Protonix 40 mg daily. She is seen by GI as an outpatient. Patient with ankylosing spondylitis. Patient will continue with her medication. She will follow up with Rheumatology as directed Vital Signs/Physical Exam: Temp Pulse Resp BP Pulse Ox 97.1 F 71 18 102/59 L 98 11/26/18 03:44 11/26/18 03:44 11/26/18 03:44 11/26/18 03:44 11/26/18 03:44 General: Alert, In no apparent distress, Oriented x3, Cooperative HEENT: Atraumatic, Mucous membr. moist/pink Neck: Supple Respiratory: Clear to auscultation bilaterally, Normal air movement Cardiovascular: Normal pulses, Regular rate/rhythm Gastrointestinal: Normal bowel sounds, Soft and benign, Non-distended, No tenderness, No masses, No rebound, No guarding Musculoskeletal: No erythema, No tenderness, No warmth Integumentary: No tenderness/swelling, No erythema, No warmth, No cyanosis Neurological: Normal speech, Normal strength at 5/5 x4 extr, Normal tone, Normal affect Laboratory Data at Discharge: WBC 5.2 K/uL (4.3-10.9) D 11/26/18 03:00 Hgb 13.7 g/dL (12.0-15.0) 11/26/18 03:00 Hct 40.7 % (36.0-45.0) D 11/26/18 03:00 Plt Count 209 K/uL (152-406) 11/26/18 03:00 PT 12.5 SECONDS (9.5-12.5) 11/25/18 10:40 INR 1.06 11/25/18 10:40 Sodium 144 mmol/L (136-145) 11/26/18 03:00 Potassium 4.1 mmol/L (3.5-5.1) 11/26/18 03:00 BUN 21 mg/dL (7-18) H 11/26/18 03:00 Creatinine 0.71 mg/dL (0.55-1.3) 11/26/18 03:00 Glucose 80 mg/dL (74-106) 11/26/18 03:00 Magnesium 2.0 mg/dL (1.8-2.4) 11/26/18 03:00 Total Bilirubin 0.7 mg/dL (0.2-1.0) 11/25/18 10:40 AST 18 U/L (15-37) 11/25/18 10:40 ALT 20 U/L (12-78) 11/25/18 10:40 Alkaline Phosphatase 48 U/L (45-117) 11/25/18 10:40 Troponin I < 0.02 ng/mL (0.0-0.045) 11/26/18 03:00 Triglycerides 55 mg/dL (<150) 11/26/18 03:00 Cholesterol 197 mg/dL (<200) 11/26/18 03:00 HDL Cholesterol 71 mg/dL (40-60) H 11/26/18 03:00 Cholesterol/HDL Ratio 2.77 11/26/18 03:00 Lipase 130 U/L (73-393) 11/25/18 10:40 Home Medications: Exemestane [Aromasin] 25 mg PO DAILY 11/25/18 Gabapentin 300 mg PO BEDTIME 11/25/18 Hydroxychloroquine [Plaquenil*] 200 mg PO DAILY 11/25/18 Pantoprazole Sodium [Protonix] 40 mg PO DAILY 11/25/18 Aspirin [Aspirin EC 81 MG] 81 mg PO DAILY #90 tablet. 11/26/18 Atorvastatin Calcium [Lipitor] 40 mg PO BEDTIME #30 tab 11/26/18 Folic Acid 1 mg PO DAILY #90 tablet 11/26/18 Meclizine HCl 12.5 mg PO TID PRN #15 tablet 11/26/18 New Medications: Aspirin [Aspirin EC 81 MG] 81 mg PO DAILY #90 tablet. Atorvastatin Calcium [Lipitor] 40 mg PO BEDTIME #30 tab Folic Acid 1 mg PO DAILY #90 tablet Meclizine HCl 12.5 mg PO TID PRN #15 tablet PRN Reason: Dizziness Patient Discharge Instructions: 1. Patient will follow up with her PCP in 1 week to follow up this hospitalization. 2. Patient presented with vertigo and recent fall. Patient was further evaluated. MRI with contrast showed 9 mm area of signal abnormality in the left cerebellar hemisphere. This is likely vascular malformation. No space occupying masslike characteristics were identified. Patient was monitored overnight. LDL slightly elevated. Case discussed at length with Neurology who she sees as an outpatient. At discharge dizziness improved. She was able to ambulate appropriately. At discharge patient will continue with fall precautions. At discharge she will continue with aspirin 81 mg daily, folic acid 1 mg daily, and Lipitor 40 mg daily. Recommend to follow up with Neurology later today to further address the vascular malformation. Patient will likely require neurovascular evaluation as an outpatient which will include 4 vessel angiogram to further assess the malformation an to monitor stability. This will have to be done at a higher level care center. 3. Patient with hyperlipidemia. Recommend to maintain LDL less than 70. At discharge patient will continue with Lipitor 40 mg daily. 4. Patient with history of TIA. Patient will continue with aspirin 81 mg daily and folic acid 1 mg daily. 5. Patient with history of breast cancer. She will continue with her current medication. 6. Patient with GERD. Patient will continue with Protonix 40 mg daily. She is seen by GI as an outpatient. 7. Patient with ankylosing spondylitis. Patient will continue with her medication. She will follow up with Rheumatology as directed Diet: AHA Activity: Fall precautions Time spent managing pt's care (in minutes): 55
[2018-11-26] MEDS ORDERED: FOLIC ACID 1 MG TABLET PO SCH (09:00)
[2018-11-26] MEDS ORDERED: ENOXAPARIN 40 MG/0.4 ML SQ SCH (09:00)
[2018-11-26] MEDS ORDERED: ASPIRIN EC 81 MG TAB PO SCH (09:00)
[2018-11-26 09:21] VITALS: O2SAT 97
[2018-11-26 09:40] VITALS: BP 122/75; TEMP 97.3
--- NOTE | 2018-11-26 11:21 | ECHO ---
HEIGHT: 5 ft 1 in WEIGHT: 114 lb 6.4 oz DATE OF STUDY: 11/26/[address]: Tera Vallejo DO 2-DIMENSIONAL: YES M.MODE: YES DOPPLER: YES COLOR FLOW: YES TDS: NO PORTABLE: NO DEFINITY: NO BUBBLE STUDY: NO DIAGNOSIS: VERTIGO CARDIAC HISTORY: CATHERIZATION: NO SURGERY: NO PROSTHETIC VALVE: NO PACEMAKER: NO MEASUREMENTS (cm) DIASTOLIC (NORMALS) SYSTOLIC (NORMALS) IVSd 0.8 (0.6-1.2) LA Diam 2.4 (1.9-4.0) LVEF 52% LVIDd 3.8 (3.5-5.7) LVIDs 2.8 (2.0-3.5) %FS 26% LVPWd 0.9 (0.6-1.2) Ao Diam 2.8 (2.0-3.7) 2 DIMENSIONAL ASSESSMENT: RIGHT ATRIUM: NORMAL LEFT ATRIUM: NORMAL RIGHT VENTRICLE: NORMAL LEFT VENTRICLE: NORMAL TRICUSPID VALVE: NORMAL MITRAL VALVE: NORMAL PULMONIC VALVE: NORMAL AORTIC VALVE: NORMAL PERICARDIAL EFFUSION: NONE AORTIC ROOT: NORMAL LEFT VENTRICULAR WALL MOTION: NORMAL DOPPLER/COLOR FLOW: NORMAL COMMENTS: NORMAL 2D ECHOCARDIOGRAM WITH DOPPLER. TECHNOLOGIST: Paradise ADAIR
--- NOTE | 2018-12-03 11:03 | EKG ---
Test Date: 2018-11-25 Test Time: 09:23:43 Hot Roll Inspector: DENISSE MEASUREMENT RESULTS: Intervals: Rate: 75 LA: 142 QRSD: 80 QT: 410 QTc: 457 [place]: P: 61 LA: 142 QRS: 48 T: 57 INTERPRETIVE STATEMENTS: Normal sinus rhythm Normal ECG Compared to ECG 03/03/2016 13:32:08 Myocardial infarct finding no longer present Electronically Signed On 11-25-18 13:48:54 CDT by Reed Michelle
== END 2018-11-26 11:40 | disposition home or self-care (01) ==
LOC: ER 09:03 → ERHOLD 16:29 → 2ND 21:11
PROVIDERS: ADMIT Family Medicine; ATTEND Family Medicine
DX: R42 Dizziness and giddiness (principal); R93.0 Abnormal findings on diagnostic imaging of skull and head, not elsewhere classified; E78.5 Hyperlipidemia, unspecified; K21.9 Gastro-esophageal reflux disease without esophagitis; M45.9 Ankylosing spondylitis of unspecified sites in spine; Z85.3 Personal history of malignant neoplasm of breast; Z86.73 Personal history of transient ischemic attack (TIA), and cerebral infarction without residual deficits; Z88.0 Allergy status to penicillin
CPT/HCPCS: 36415; 70450; 70551; 71045; 80048; 80061; 80076; 81003; 82550; 82553; 83690; 83735; 83880; 84443; 84484; 85025; 85610; 87077; 87086; 87088; 87186; 87804; 93005; 93306; 93880; 96365; 96366; 96375; 97162; 99285; G0378; J1650; J2405; J7030

== ENCOUNTER 2020-03-06 10:08 | Emergency (ER) | payer OTHER ==
--- OUTSIDE RECORDS SUMMARY | 2020-03-06 10:10 | XMS REPORT | Continuity of Care Document ---
:1960 Author Organization [facility] t Address [address] [place] [address] Care Team Providers Name Role Phone John MENDEZ, Aries Najera Primary Care Physician Jemima Kerr MD Attending Clinician Payers Payer Name Policy Type Policy Number Effective Date Expiration Date S gabino AETNA xxxxxxxxxxxx 2019 [place] MEDICAREAETNA 00:00:00 [place] MEDICARE HMO/PPO [id number] Problems This patient has no known problems. Allergies, Adverse Reactions, Alerts Allergy Allergy Status Severity Reaction(s) Onset Inactive Treating Comm ents Source Name Type Date Date Clinician Amitript Propensi Active Other (See fogginess [place] [facility] ty to Comments) 02-22 [facility] adverse 00:00: st reaction 00 s to drug Lorazepa Propensi Active Anxiety [place] ty to 02-22 [facility] adverse 00:00: st reaction 00 s to drug Amoxicil Propensi Active GI [place] cynthia-Pot ty to Intolerance 02-22 Meth raegan Clavulan adverse 00:00: st ate reaction 00 s to drug Ciproflo Propensi Active Other (See Throat [place] xacin ty to Comments) 02-22 started [facility] i adverse 00:00: to close st reaction 00 up, s to swelling. drug Codeine Propensi Active Hallucinatio 2019- [place] ty to ns 02-22 [facility] adverse 00:00: st reaction 00 s to drug Meperidi Propensi Active Anxiety 2019- Heart [place] ty to 02-22 palpitati [facility]i adverse 00:00: ons. st reaction 00 s to drug Fentanyl Propensi Active Anxiety 2019- Heart [place] ty to 02-22 palpitati [facility]i adverse 00:00: ons. st reaction 00 s to drug Hydrocod Propensi Active Hallucinatio [place] one ty to ns 02-22 Method[facility] adverse 00:00: st reaction 00 s to drug Morphine Propensi Active Anxiety Heart [place] ty to 02-22 palpitati [facility] adverse 00:00: ons. st reaction 00 s to drug Solifena Propensi Active Other (See Fogginess [place] stephie ty to Comments) 02-22 . [facility] adverse 00:00: st reaction 00 s to drug Family History Family Member Diagnosis Comments Start Date Stop Date Source Natural brother Cancer [facility] ethodist Natural father Cancer [place] [facility] Natural father Stroke [place] [facility] Maternal grandfather Cancer [place] Maternal grandmother Cancer [place] Paternal aunt Cancer [place] [facility] Paternal grandmother Stroke [place] Social History Social Habit Start Date Stop Date Quantity Comments Source Sex Assigned At [facility] ethodist Exposure to Not sure [place] [facility] dist SARS-CoV-2 (event) Alcohol intake 2020-02-23 2020-02-23 Ex-drinker [facility] thodist 00:00:00 00:00:00 (finding) Smoking Status Start Date Stop Date Source Never smoker [place] t Medications Ordered Filled Start Stop Current Ordering Indication Dosage Frequency Signature Comments Components Source Medication Medication Date Date Medication? Clinician (SIG) Name Name gabapentin 2020-0 Yes 300mg Take 300 [place] (NEURONTIN) 6-29 mg by [facility] 100 mg 09:19: mouth. st capsule 20 meclizine 2020-0 Yes 12.5mg Take 12.5 [place] (ANTIVERT) 6-29 mg by [facility] 12.5 mg 09:19: mouth. st tablet 20 aspirin 2020-0 Yes 81mg Take 81 mg [place] (ECOTRIN) 6-29 by mouth. Metho di 81 MG 09:19: st enteric 20 coated tablet calcium 2019-0 Yes 500mg Take 500 [place] carbonate-v 6-29 mg by [facility] itamin D3 09:19: mouth. st 600 20 mg(1,500mg) -200 unit per tablet FOLIC ACID Yes Take by [place] ORAL 02-22 mouth. Methodi 09:19: st 19 naproxen 2020- Yes 500mg Q.5D Take 1 [place] (NAPROSYN) 02-22 tablet Method i 500 MG 00:00: 23:59 ([address] tablet 00 :00 total) by mouth 2 (two) times a day. diltiazem Yes Roman CD 6-16 [facility] (CardIZEM 00:00: st CD) 120 MG 00 24 hr capsule celecoxib Yes Roman (CeleBREX) 6-03 [facility] 200 MG 00:00: st capsule 00 exemestane Yes Roman (AROMASIN) 5-14 [facility] 25 mg chemo 00:00: st tablet 00 denosumab Yes 60mg 60 mg. Svitlana n (Prolia) 60 5-22 [facility] mg/mL 00:00: st syringe 00 syringe pantoprazol 2015-08 Yes 40mg Take 40 mg Roman e 09-03 by mouth. [facility] (PROTONIX) 00:00: st 40 MG EC 00 tablet Vital Signs Vital Name Observation Time Observation Value Comments Source Body height 2020-02-23 09:08:00 154.9 cm Roman Ftizgerald Body weight 2020-02-23 09:08:00 53.524 kg Roman Fitzgerald BMI 2020-02-23 09:08:00 22.30 kg/m2 Roman Fitzgerald Procedures Procedure Date / Time Performed Performing Clinician Sourc e XR CERVICAL SPINE 2020-02-23 09:59:13 William Kerr ethodist COMPLETE W FLEX EXT XR LUMBAR SPINE COMPLETE 2020-02-23 09:55:09 William Kerr 4+ VW Plan of Care Planned Activity Planned Date Details Comments Source Future Scheduled 2020-03-27 INFLUENZA VACCINE Svitlana Fitzgerald Test 00:00:00 [code = INFLUENZA VACCINE] Future Scheduled 2010 BREAST CANCER Roman Christopher thodist Test 00:00:00 SCREENING [code = BREAST CANCER SCREENING] Future Scheduled 2010 COLONOSCOPY SCREENING Hao Fitzgerald Test 00:00:00 [code = COLONOSCOPY SCREENING] Future Scheduled 2010 SHINGLES VACCINES [place] Test 00:00:00 (#1) [code = SHINGLES VACCINES (#1)] Future Scheduled 1981 Screening for [facility] thodist Test 00:00:00 malignant neoplasm of cervix (procedure) [code = 347722266] Encounters Start End Encounter Admission Attending Care Care Encounter Source Date/Time Date/Time Type Type Clinicians Facility Department ID 2020-02-23 2020-02-23 Outpatient [facility] [id number] [place] 00:00:00 00:00:00 WILLIAM [address] 2020-02-23 2020-02-23 Outpatient [facility] [id number] [place] 00:00:00 00:00:00 WILLIAM [address] 2020-02-23 2020-02-23 Outpatient [facility] [id number] 501 [place] 00:00:00 00:00:00 WILLIAM [address] Results This patient has no known results.
--- OUTSIDE RECORDS SUMMARY | 2020-03-06 10:10 | XMS REPORT | Clinical Summary ---
:1960 Author Organization [facility] Address [address] [place] [address] Care Team Providers Name Role Phone Aries Lopez MD Primary Care Provider Allergies Active Allergy Reactions Severity Noted Date Comments Amitriptyline Other (See Comments) 02/23/2020 foggin ess Lorazepam Anxiety Low 02/23/2020 Amoxicillin-Pot GI Intolerance 02/23/2020 Clavulanate Ciprofloxacin Other (See Comments) High 02/23/2020 Throat started to close up, swell ing. Codeine Hallucinations 02/23/2020 Meperidine Anxiety Low 02/23/2020 Heart palpitati ons. Fentanyl Anxiety Low 02/23/2020 Heart palpitati ons. Hydrocodone Hallucinations 02/23/2020 Morphine Anxiety Low 02/23/2020 Heart palpitati ons. Solifenacin Other (See Comments) 02/23/2020 [place]ogg[place] ss. Medications Medication Sig Dispensed Refills Start Date End Date Status celecoxib (CeleBREX) 0 01/28/2020 Active 200 MG capsule diltiazem CD (CardIZEM 0 02/10/2020 Active CD) 120 MG 24 hr capsule exemestane (AROMASIN) 0 01/08/2020 Active 25 mg chemo tablet FOLIC ACID ORAL Take by mouth. 0 Active pantoprazole Take 40 mg by 0 07/04/2016 Ac tive (PROTONIX) 40 MG EC mouth. tablet gabapentin (NEURONTIN) Take 300 mg by 0 Active 100 mg capsule mouth. meclizine (ANTIVERT) Take 12.5 mg by 0 Active 12.5 mg tablet mouth. aspirin (ECOTRIN) 81 Take 81 mg by 0 Active MG enteric coated mouth. tablet calcium Take 500 mg by 0 Activ e carbonate-vitamin D3 mouth. 600 mg(1,500mg) -200 unit per tablet denosumab (Prolia) 60 60 mg. 0 01/15/2019 Active mg/mL syringe syringe naproxen (NAPROSYN) Take 1 tablet 60 tablet 0 02/23/202002/22 Active 500 MG tablet (500 mg total) by mouth 2 (two) times a day. Active Problems Not on file Encounters Date Type Specialty Care Team Description 02/23/2020 Office Visit Orthopedic Surgery Dimitri Kerr Dege neration of intervertebral disc at L5-S1 level (Primary Dx); MD George dexter; Lower extremity pain, bilateral; Pain in both up per extremities; Osteoarthritis of facet joint of lumbar spine 02/23/2020 Travel 01/29/2020 Travel after 03/06/2019 Family History Medical History Relation Name Comments Cancer Brother Constantine Muniz prostate Cancer Father Reinaldo Muniz skin cancer Stroke Father Reinaldo Muniz fully recovered Cancer Maternal Grandfather Melchor Eduardo skin cancer Cancer Maternal Grandmother Mary Jane Eduardo leukemia Cancer Paternal Aunt Yvette Obregon breast cancer Cancer Paternal Aunt Sheyla Elliott breast cancer Stroke Paternal Grandmother Chasity Muniz Relation Name Status Comments Brother Constantine Muniz Father Reinaldo Muniz Maternal Grandfather Melchor Eduardo Maternal Grandmother Mary Jane Eduardo Paternal Aunt Yvette Obregon Paternal Aunt Sheyla Elliott Paternal Grandmother Chasity Flavio Social History Tobacco Use Types Packs/Day Years Used Date Never Smoker 0 0 Smokeless Tobacco: Never Used Alcohol Use Drinks/Week oz/Week Comments Not Currently 0 Glasses of wine 0.0 0 Cans of beer 0 Shots of liquor 0 Standard drinks or equivalent Sex Assigned at Date Recorded Not on file Job Start Date Occupation Industry Not on file Not on file Not on file Travel History Travel Start Travel End No recent travel history available. COVID-19 Exposure Response Date Recorded In the last month, have you been in contact with No / Unsure 02/23/2020 8:36 AM CDT someone who was confirmed or suspected to have Coronavirus / COVID-19? Last Filed Vital Signs Vital Sign Reading Time Taken Comments Blood Pressure - - Pulse - - Temperature - - Respiratory Rate - - Oxygen Saturation - - Inhaled Oxygen Concentration - - Weight 53.5 kg (118 lb) 02/23/2020 9:08 AM CDT Height 154.9 cm (5' 1") 02/23/2020 9:08 AM CDT Body Mass Index 22.3 02/23/2020 9:08 AM CDT Plan of Treatment Date Type Specialty Care Team Description 04/05/2020 Office Visit [place] [address] [id number] Health Maintenance Due Date Last Done Comments CERVICAL CANCER SCREENING 1981 BREAST CANCER SCREENING 2010 COLONOSCOPY SCREENING 2010 SHINGLES VACCINES (#1) 2010 INFLUENZA VACCINE 03/27/2020 Procedures Procedure Name Priority Date/Time Associated Diagnosis Comme nts XR CERVICAL SPINE Routine 02/23/2020 9:59 AM Neck pain Res ults for this COMPLETE W FLEX EXT CDT procedur e are in the results section. XR LUMBAR SPINE Routine 02/23/2020 9:55 AM Low back pain, Res ults for this COMPLETE 4+ VW CDT unspecified back procedure are in pain laterality, the results unspecified section. chronicity, unspecified whether sciatica present after 03/06/2019 Results XR Cervical Spine Complete w flex/ext (02/23/2020 9:59 AM CDT) Specimen Narrative Performed At This result has an attachment that is no t available. 7 views of the cervical spine are reviewed. These demonstrate [facility] satisfactory coronal balance. There is obvious facet arthropathy at multiple levels bilaterally. Lateral view demonstrat es disc degeneration principally at C4-5, C5-6 and C6-7. There are also l arge osteophytes anteriorly at those levels. There is no evidence of instability on flexion-extension views. Oblique views demonstrate s atisfactory neuroforaminal volume and minimal uncovertebral osteop hyte. Odontoid view is unremarkable. Performing Organization Address City/State/Zipcode Phone Number [facility] [address] [place] [address] XR Lumbar Spine Complete 4+ Vw (02/23/2020 9:55 AM CDT) Specimen Narrative Performed At This result has an attachment that is no t available. 7 views of the lumbar spine are reviewed. These demonstrate satisfactory [facility] coronal balance. The patient stands with a level pel vis. There is mild disc degeneration present mild marginal osteophyte for mation. Lateral view demonstrates satisfactory sagittal balance. The re is to space narrowing at L5-S1 greater than any other level. The re is minimal anterior osteophyte at any location of the lumbar spin e. There is no evidence of instability on flexion-extension views. Oblique views demonstrate facet arthropathy mostly at L5-S1 bilatera lly. There is no evidence of acute or chronic fracture. 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
[2020-03-06] MEDS ORDERED: LIDOCAINE VISCOUS 2% SOLN 15 ML UDC ONE (10:51)
[2020-03-06] MEDS ORDERED: FAMOTIDINE 20 MG/2 ML VIAL IV ONE (10:51)
[2020-03-06] MEDS ORDERED: MAGNE/ALUM HYDROXD 30 ML UCUP ONE (10:51)
[2020-03-06 11:06] LABS: Absolute Lymphocytes (CBC) 1.3 K/uL (0.7-4.9); Hematocrit 45.8 % (36.0-45.0); Lymphocytes % 19.7 % (15.3-44.8); MPV 8.7 fL (7.6-11.3); RBC Red Blood Cell Count 5.01 M/uL (3.86-4.86)
[2020-03-06 11:20] LABS: Albumin 3.9 g/dL (3.4-5.0); Bilirubin Direct 0.2 mg/dL (0-0.2); Bilirubin Total 0.6 mg/dL (0.2-1.0); Potassium 3.8 mmol/L (3.5-5.1)
[2020-03-06] MEDS ORDERED: NA CHLORIDE 0.9% 500 ML ONE (12:06)
--- NOTE | 2020-03-06 13:06 | RAD REPORT ---
EXAM DESCRIPTION: CT - Abdomen Pelvis W Contrast - 03/06/2020 12:54 pm CLINICAL HISTORY: ABD PAIN COMPARISON: Abdomen Pelvis W Contrast dated 03/06/2016; Abdomen Pelvis W Contrast dated 03/03/2016 TECHNIQUE: Biphasic, helical CT imaging of the abdomen and pelvis was performed following 100 ml non -ionic IV contrast. Oral contrast was given. All CT scans are performed using dose optimization technique as appropriate and may include automated exposure control or mA/KV adjustment according to patient size. FINDINGS: No suspicious findings in the lung bases. No suspicious liver finding. Small low-density liver masses are stable from 2016. No spleen or pancre as abnormality. Gallbladder and biliary tree are also without suspicious finding. Gallstones can be o ccult on CT imaging. Symmetric renal function is seen with no hydronephrosis or suspicious renal mass. No pyelonephritis o r acute parenchymal process. A punctate nonobstructing calyx calcification present lower pole left ki dney. No active renal parenchymal process. No adrenal abnormalities. Contracted urinary bladder shows no suspicious findings. Uterus is absent. Ovaries are absent or atrophic. The stomach abnormality seen. No dilated small bowel loops. Approximately 20 centimeter long segment of distal jejunum shows prominent bhatt. No surrounding edema. This may be a peristalsis artifact. En teritis is not excluded. No dilated colon. Patient has sigmoid diverticulosis without diverticulitis. . The appendix is not identified and may be absent or obscured by adjacent bowel. No suspicion for a ppendicitis. No free air, free fluid or pneumatosis. No mass or bulky lymphadenopathy. Numerous cli ps are present along the anterior abdominal wall from TRAM flap reconstruction. No suspicious bony findings. Facet joint degenerative changes are present. IMPRESSION: Sigmoid diverticulosis present without diverticulitis. Mild mucosal level colitis can be present an occult on CT imaging. Prominent bhatt in the distal jejunum are noted. This is potentially peristalsis artifact. Nonspecifi c enteritis can have this appearance as well.
--- NOTE | 2020-03-06 13:25 | EDPHYS ---
Physician Documentation [facility] Name: Mikey Muniz Age: 59 yrs Sex: Female : 1960 Arrival Date: 03/06/2020 Time: 10:09 Bed 17 Private MD: Aries Lopez ED Physician Humphrey Arroyo HPI: 03/06 10:46 This 59 yrs old Female presents to ER via Ambulatory with complaints of rn Abdominal Pain. 10:46 The patient presents with abdominal pain. Onset: The symptoms/episode began/occurred 2 rn week(s) ago. The symptoms do not radiate. Associated signs and symptoms: Pertinent positives: diarrhea, nausea, Pertinent negatives: blood in stools, fever, shortness of breath, vomiting, vomiting blood. The symptoms are described as achy, crampy. Modifying factors: The symptoms are alleviated by nothing, the symptoms are aggravated by nothing. Severity of pain: At its worst the pain was moderate in the emergency department the pain has improved. The patient has experienced similar episodes in the past. Reports abd pain, upper and lower, began 2 weeks ago, worse last night, no blood in stool or dark stool, no fever. No known sick contacts. Denies previous gallbladder problem, has been on sucralfate before, worse with NSAIDs, improved after stopped taking naproxen, seen by pcp and told likely NSAID related. Abd pain better today. No chest pain.. Historical: - Allergies: 10:22 Augmentin; iw 10:22 Codeine; iw 10:22 Demerol; iw 10:22 Morphine; iw 10:22 [place]; iw 10:22 Ativan; iw 10:22 NSAIDS; iw 10:22 Cipro; iw 10:22 Fentanyl; iw 10:22 Amitriptyline; iw - Home Meds: 10:30 exemestane 25 mg oral tab 1 tab [Active]; diltiazem HCl 120 mg Oral tab [Active]; folic ca1 acid 1 mg Oral tab [Active]; pantoprazole 40 mg Oral TbEC 1 tab once daily [Active]; gabapentin 300 mg Oral cap 1 cap AT NIGHT for Neuropathic Pain [Active]; meclizine 12.5 mg Oral tab [Active]; aspirin 81 mg Oral TbEC 1 tab once daily [Active]; 10:31 Prolia subcutaneous [Active]; ca1 - PMHx: 10:22 Ankylosing Spondylitis; Cancer, Breast; neuropathy; Ovarian cyst; Diverticulitis; iw - PSHx: 10:22 Hysterectomy; Tonsillectomy; Mastectomy, Left; Mastectomy, Right; left knee; D \T\ C; iw left ear; - Immunization history:: Adult Immunizations up to date. - Social history:: Smoking status: Patient denies any tobacco usage or history of. - Family history:: not pertinent. - Hospitalizations: : No recent hospitalization is reported. ROS: 10:46 Constitutional: Negative for fever, chills, and weight loss, Eyes: Negative for injury, rn pain, redness, and discharge, Cardiovascular: Negative for chest pain, palpitations, and edema, Respiratory: Negative for shortness of breath, cough, wheezing, and pleuritic chest pain, Abdomen/GI: Negative for vomiting, and constipation, MS/Extremity: Negative for injury and deformity, Skin: Negative for injury, rash, and discoloration, Neuro: Negative for headache, weakness, numbness, tingling, and seizure. Exam: 10:46 Constitutional: This is a well developed, well nourished patient who is awake, alert, rn and in no acute distress. Head/Face: Normocephalic, atraumatic. Cardiovascular: Regular rate and rhythm. No pulse deficits. Respiratory: Speaking full sentences. No increased work of breathing, no retractions or nasal flaring. Abdomen/GI: soft, mild tenderness epigastric region and suprapubic region. No masses or rebound. Skin: Warm, dry MS/ Extremity: Pulses equal, no cyanosis. Neuro: Awake and alert, GCS 15 Vital Signs: 10:15 BP 154 / 93; Pulse 95; Resp 15 S; Temp 97.7(TE); Pulse Ox 97% on R/A; Weight 53.52 kg iw (R); Height 5 ft. 1 in. (154.94 cm) (R); Pain 3/10; 11:21 BP 144 / 100; Pulse 87; Resp 16; Pulse Ox 98% on R/A; rb1 12:30 BP 139 / 107; Pulse 79; Resp 16; Pulse Ox 99% ; rb1 13:09 BP 143 / 86; Pulse 86; Resp 15; Pulse Ox 98% ; rb1 10:15 Body Mass Index 22.30 (53.52 kg, 154.94 cm) iw MDM: 10:23 Patient medically screened. rn 11:56 ED course: Pain markedly improved after antacid medications.. rn 13:22 Differential diagnosis: appendicitis, bowel obstruction, cholecystitis, Cholelithiasis, rn diverticulitis, gastritis, gastroesophageal reflux disease, non-specific abd pain, pancreatitis, Peptic Ulcer Disease, Perf. Duodenal Ulcer, Perf. Gastric Ulcer. Data reviewed: vital signs, nurses notes, lab test result(s), radiologic studies, and as a result, I will discharge patient. Counseling: I had a detailed discussion with the patient and/or guardian regarding: the historical points, exam findings, and any diagnostic results supporting the discharge/admit diagnosis, lab results, radiology results, the need for outpatient follow up, to return to the emergency department if symptoms worsen or persist or if there are any questions or concerns that arise at home. Response to treatment: the patient's symptoms have markedly improved after treatment, and as a result, I will discharge patient. Special discussion: I discussed with the patient/guardian in detail that at this point there is no indication for admission to the hospital. It is understood, however, that if the symptoms persist or worsen the patient needs to return immediately for re-evaluation. Special discussion: Based on the history and exam findings, there is no indication for further emergent testing or inpatient evaluation. I discussed with the patient/guardian the need to see the full stack php developer for further evaluation of the symptoms. ED course: Pt sees Dr. Mujica for GI, will dc home given no acute findings on CT abdomen, labs unremarkable except for hemoconcentration/dehydration, improved with antacid therapy, takes protonix, has script waiting for her at pharmacy for carafate, will f/u with Dr. Mujica.. 03/06 10:36 Order name: Basic Metabolic Panel rn 03/06 10:36 Order name: CBC with Diff; Complete Time: 11:40 rn 03/06 10:36 Order name: Hepatic Function; Complete Time: 11:40 rn 03/06 10:36 Order name: Lipase; Complete Time: 11:40 rn 03/06 10:36 Order name: CT Abd/Pelvis - PO and IV Contrast; Complete Time: 13:08 rn 03/06 10:37 Order name: Basic Metabolic Panel; Complete Time: 11:40 EDMS 03/06 10:36 Order name: IV Saline Lock; Complete Time: 11:00 rn 03/06 10:36 Order name: Labs collected and sent; Complete Time: 11:00 rn Administered Medications: 10:45 Drug: GI Cocktail without - (Maalox Suspension 30 ml, Lidocaine Liquid 2 % 15 rb1 ml) Route: PO; 11:11 Follow up: Response: No adverse reaction; Marked relief of symptoms rb1 10:55 Drug: Pepcid 20 mg Route: IVP; Site: right antecubital; rb1 11:11 Follow up: Response: No adverse reaction rb1 12:02 Drug: NS 0.9% 500 ml Route: IV; Rate: bolus; Site: right antecubital; rb1 12:57 Follow up: IV Status: Completed infusion rb1 Disposition: 03/06/20 13:24 Discharged to Home. Impression: Upper abdominal pain, unspecified, Dehydration. - Condition is Stable. - Discharge Instructions: Abdominal Pain, Adult, Dehydration, Adult, Gastritis, Adult, Gastroesophageal Reflux Disease, Adult. - Medication Reconciliation Form, Thank You Letter, Antibiotic Education, Prescription Opioid Use form. - Follow up: Micheal Mujica MD; When: As needed; Reason: Recheck today's complaints, Re-evaluation by your physician. - Problem is an ongoing problem. - Symptoms have improved. Signatures: Dispatcher [employer] EDYvette Suggs RN RN iw Nieto, Roman, MD MD rn Barber, Rebecca, RN RN rb1 Acob, Yenni, RN RN ca1 Corrections: (The following items were deleted from the chart) 13:24 13:24 03/06/2020 13:24 Discharged to Home. Impression: Upper abdominal pain, rn unspecified. Condition is Stable. Forms are Medication Reconciliation Form, Thank You Letter, Antibiotic Education, Prescription Opioid Use. Follow up: Micheal Mujica; When: As needed; Reason: Recheck today's complaints, Re-evaluation by your physician. Problem is an ongoing problem. Symptoms have improved. rn 13:38 13:24 03/06/2020 13:24 Discharged to Home. Impression: Upper abdominal pain, rb1 unspecified; Dehydration. Condition is Stable. Forms are Medication Reconciliation Form, Thank You Letter, Antibiotic Education, Prescription Opioid Use. Follow up: Micheal Mujica; When: As needed; Reason: Recheck today's complaints, Re-evaluation by your physician. Problem is an ongoing problem. Symptoms have improved. rn
--- NOTE | 2020-03-06 13:25 | ER ---
Nurse's Notes [facility] Name: Mikey Muniz Age: 59 yrs Sex: Female : 1960 Arrival Date: 03/06/2020 Time: 10:09 Bed 17 Private MD: Aries Lopez Diagnosis: Upper abdominal pain, unspecified;Dehydration Presentation: 03/06 10:15 Chief complaint: Patient states: Severe abdominal pain since last night. Last week had iw a bout of diverticulitis and was on Naproxen for 2 days. Caused some epigastric pain, I stopped taking it and it eased up. But last night, had the same pain but now all over the abdomen. I also had diarrhea but that is normal to me with my colitis and diverticulitis. Reports nausea. Coronavirus screen: Proceed with normal triage. Patient denies a cough. Patient denies shortness of breath or difficulty breathing. Patient denies measured and/or subjective temperature greater than 100.4F prior to today's visit. Patient denies travel on a cruise ship or to a country the [facility] currently lists as an affected area. Patient denies contact with known and/or suspected case of COVID-19. Ebola Screen: Patient negative for fever greater than or equal to 101.5 degrees Fahrenheit, and additional compatible Ebola Virus Disease symptoms Patient denies exposure to infectious person. Patient denies travel to an Ebola-affected area in the 21 days before illness onset. No symptoms or risks identified at this time. Initial Sepsis Screen: Does the patient meet any 2 criteria? No. Patient's initial sepsis screen is negative. Does the patient have a suspected source of infection? No. Patient's initial sepsis screen is negative. Risk Assessment: Do you want to hurt yourself or someone else? Patient reports no desire to harm self or others. Onset of symptoms was March 06, 2020. 10:15 Method Of Arrival: Ambulatory iw 10:15 Acuity: YUE 3 iw Historical: - Allergies: 10:22 Augmentin; iw 10:22 Codeine; iw 10:22 Demerol; iw 10:22 Morphine; iw 10:22 [place]; iw 10:22 Ativan; iw 10:22 NSAIDS; iw 10:22 Cipro; iw 10:22 Fentanyl; iw 10:22 Amitriptyline; iw - Home Meds: 10:30 exemestane 25 mg oral tab 1 tab [Active]; diltiazem HCl 120 mg Oral tab [Active]; folic ca1 acid 1 mg Oral tab [Active]; pantoprazole 40 mg Oral TbEC 1 tab once daily [Active]; gabapentin 300 mg Oral cap 1 cap AT NIGHT for Neuropathic Pain [Active]; meclizine 12.5 mg Oral tab [Active]; aspirin 81 mg Oral TbEC 1 tab once daily [Active]; 10:31 Prolia subcutaneous [Active]; ca1 - PMHx: 10:22 Ankylosing Spondylitis; Cancer, Breast; neuropathy; Ovarian cyst; Diverticulitis; iw - PSHx: 10:22 Hysterectomy; Tonsillectomy; Mastectomy, Left; Mastectomy, Right; left knee; D \T\ C; iw left ear; - Immunization history:: Adult Immunizations up to date. - Social history:: Smoking status: Patient denies any tobacco usage or history of. - Family history:: not pertinent. - Hospitalizations: : No recent hospitalization is reported. Screenin:30 Abuse screen: Denies threats or abuse. Nutritional screening: No deficits noted. rb1 Tuberculosis screening: No symptoms or risk factors identified. Fall Risk None identified. Assessment: 10:30 General: Appears in no apparent distress. comfortable, Behavior is calm, cooperative, rb1 Denies fever. Pain: Complains of pain in abdomen Pain currently is 4 out of 10 on a pain scale. Pain began last night. Neuro: Level of Consciousness is awake, alert, obeys commands, Oriented to person, place, time, situation. Cardiovascular: Capillary refill < 3 seconds Patient's skin is warm and dry. Respiratory: Airway is patent Respiratory effort is even, unlabored, Respiratory pattern is regular, symmetrical. GI: Bowel sounds present X 4 quads. Abd is soft X 4 quads Reports diarrhea, nausea. : No signs and/or symptoms were reported regarding the genitourinary system. Musculoskeletal: Range of motion: intact in all extremities. 11:25 Reassessment: Patient appears in no apparent distress at this time. Patient states rb1 symptoms have improved. 12:23 Reassessment: Patient appears in no apparent distress at this time. Patient and/or rb1 family updated on plan of care and expected duration. Pain level reassessed. Patient is alert, oriented x 3, equal unlabored respirations, skin warm/dry/pink. Pt. ambulated to the restroom without difficulty. 12:43 Reassessment: Pt. went to CT. rb1 13:10 Reassessment: Patient appears in no apparent distress at this time. Patient and/or rb1 family updated on plan of care and expected duration. Pain level reassessed. Patient is alert, oriented x 3, equal unlabored respirations, skin warm/dry/pink. 13:14 Reassessment: Dr. Arroyo is at the pt. bedside. rb1 Vital Signs: 10:15 BP 154 / 93; Pulse 95; Resp 15 S; Temp 97.7(TE); Pulse Ox 97% on R/A; Weight 53.52 kg iw (R); Height 5 ft. 1 in. (154.94 cm) (R); Pain 3/10; 11:21 BP 144 / 100; Pulse 87; Resp 16; Pulse Ox 98% on R/A; rb1 12:30 BP 139 / 107; Pulse 79; Resp 16; Pulse Ox 99% ; rb1 13:09 BP 143 / 86; Pulse 86; Resp 15; Pulse Ox 98% ; rb1 10:15 Body Mass Index 22.30 (53.52 kg, 154.94 cm) iw ED Course: 10:09 Patient arrived in ED. ag5 10:09 Aries Lopez MD is Private Physician. ag5 10:20 Triage completed. iw 10:22 Arm band placed on right wrist. iw 10:23 Humphrey Arroyo MD is Attending Physician. rn 10:28 Keyla Esteves, YASMANI is Primary Nurse. rb1 10:30 Patient has correct armband on for positive identification. Bed in low position. Call rb1 light in reach. Side rails up X 1. Pulse ox on. NIBP on. Warm blanket given. 10:55 Inserted saline lock: 22 gauge in right antecubital area, using aseptic technique. rb1 Blood collected. 10:58 Note: DO PO CONTRAST WITH INSTRUCTIONS TO PT 10;45. bq 12:54 CT completed. Patient tolerated procedure well. Patient moved back from CT. bq 12:54 CT Abd/Pelvis - PO and IV Contrast In Process Unspecified. EDMS 13:24 Micheal Mujica MD is Referral Physician. rn 13:37 No provider procedures requiring assistance completed. IV discontinued, intact, rb1 bleeding controlled, No redness/swelling at site. Pressure dressing applied. Administered Medications: 10:45 Drug: GI Cocktail without - (Maalox Suspension 30 ml, Lidocaine Liquid 2 % 15 rb1 ml) Route: PO; 11:11 Follow up: Response: No adverse reaction; Marked relief of symptoms rb1 10:55 Drug: Pepcid 20 mg Route: IVP; Site: right antecubital; rb1 11:11 Follow up: Response: No adverse reaction rb1 12:02 Drug: NS 0.9% 500 ml Route: IV; Rate: bolus; Site: right antecubital; rb1 12:57 Follow up: IV Status: Completed infusion rb1 Output: 12:23 Urine: 1ml (Voided); Stool: 1 (Loose Stool) ; Total: 1ml. rb1 Outcome: 13:24 Discharge ordered by . rn 13:37 Discharged to home ambulatory. rb1 13:37 Condition: stable 13:37 Discharge instructions given to patient, Instructed on discharge instructions, follow up and referral plans. Demonstrated understanding of instructions, follow-up care, Prescriptions given X none 13:38 Patient left the ED. rb1 Signatures: Dispatcher [employer] Leanna Yao Irene, RN RN iw Nieto, Roman, MD MD rn Barber, Rebecca, RN RN rb1 Acob, Cheryl RN Francisco Gauthier5
[2020-03-06 13:45] VITALS: TEMP 97.7
[2020-03-06 13:48] VITALS: BP 143/86; O2SAT 98
== END 2020-03-06 13:38 | disposition home or self-care (01) ==
LOC: ER 10:08
DX: E86.0 Dehydration (principal); Z85.3 Personal history of malignant neoplasm of breast; Z90.13 Acquired absence of bilateral breasts and nipples; Z79.82 Long term (current) use of aspirin; Z88.1 Allergy status to other antibiotic agents; Z88.5 Allergy status to narcotic agent; Z88.6 Allergy status to analgesic agent; Z88.8 Allergy status to other drugs, medicaments and biological substances
CPT/HCPCS: 96361; 85025; 80048; 36415; 80076; 83690; 74177; 96374; 99284; Q9967; J7040

== ENCOUNTER 2021-02-18 19:32 | Emergency (ER) | payer OTHER ==
--- OUTSIDE RECORDS SUMMARY | 2021-02-18 19:35 | XMS REPORT | Continuity of Care Document ---
:1960 Author Organization [facility] t Address [address] [place] [address] Care Team Providers Name Role Phone John MENDEZ, Aries Najera Primary Care Physician Jemima Kerr MD Attending Clinician Payers Payer Name Policy Type Policy Effective Date Expiration Date Sour ce Number AETNA MEDICAREAETNA [id number] 2019 [place] MED[place] H[place]/PPO 0 00:00:00 Method[facility] t [id number] Problems This patient has no known problems. Allergies, Adverse Reactions, Alerts Allergy Allergy Status Severity Reaction(s) Onset Inactive Treating Comm ents Source Name Type Date Date Clinician Fentanyl Propensi Active Anxiety [facility] [place] ty [...] to drug Solifena Propensi Active Other ([facility] [place] [facility]phie ty to Comments) 02-22 . [facility] adverse 00:00: st reaction 00 s to drug Amitript Propensi Active Other ([facility] [place] yline ty to Comments) 02-22 [facility] adverse 00:00: st reaction 00 s to drug Lorazepa Propensi Active Anxiety [place] m ty to 02-22 [facility] adverse 00:00: st reaction 00 s to drug Amoxicil Propensi Active GI [place] cynthia-Pot ty to Intolerance 02-22 Meth raegan Clavulan adverse 00:00: st ate reaction 00 s to drug Ciproflo Propensi Active Other (See 2019- Throat [place] xacin ty to Comments) 02-22 started [facility] i adverse 00:00: to close st reaction 00 up, s to swelling. drug Codeine Propensi Active Hallucinatio 2019- [place] ty to ns 02-22 [facility] adverse 00:00: st reaction 00 s to drug Meperidi Propensi Active Anxiety [facility] [place] ne ty to 02-22 palpitati [facility] adverse 00:00: ons. st reaction 00 s to drug Family History Family Member Diagnosis Comments Start Date Stop Date Source Natural brother Cancer [facility] ethodist Natural father Cancer [place] [facility] Natural father Stroke [place] [facility] Maternal grandfather Cancer [place] [facility] Maternal grandmother Cancer [place] [facility] Paternal aunt Cancer [place] [facility] Paternal grandmother Stroke [place] [facility] Social History Social Habit Start Date Stop Date Quantity Comments Source Tobacco use and 2020-02-23 2020-02-23 Never used [facility] ethodist exposure 00:00:00 00:00:00 Alcohol intake 2020-02-23 2020-02-23 Ex-drinker [place] [facility] 00:00:00 00:00:00 (finding) Sex Ass[birth year] At [birth year] [facility] ethodist 00:00:00 00:00:00 Smoking Status Start Date Stop Date Source Never smoker [place] [facility] t Medications Ordered Filled Start Stop Current Ordering Indication Dosage Frequency Signature Comments Components Source Medication Medication Date Date Medication? Clinician (SIG) Name Name gabapentin 2019- Yes 300mg Take 300 [place] (NEURONTIN) 6-29 mg by [facility] 100 mg 09:19: mouth. st capsule 20 meclizine 2019-0 Yes 12.5mg Take 12.5 [place] (ANTIVERT) 6-29 mg by [facility] 12.5 mg 09:19: mouth. st tablet 20 aspirin 2019-0 Yes 81mg Take 81 mg [place] (ECOTRIN) 02-22 by mouth. Metho di 81 MG 09:19: st enteric 20 coated tablet calcium 2019-0 Yes 500mg Take 500 [place] carbonate-v 6- mg by [facility] itamin D3 09:19: mouth. st 600 20 mg(1,500mg) -200 unit per tablet FOLIC ACID 2019- Yes Take by [place] ORAL 02-22 mouth. [facility] 09:19: st 19 naproxen 2019-2020- No 500mg Q.5D Take 1 [place] (NAPROSYN) 02-22 tablet Method i 500 MG 00:00: 23:59 ([address] tablet 00 :00 total) by mouth 2 (two) times a day. diltiazem 2019-0 Yes Roman CD 6-16 [facility] (CardIZEM 00:00: st CD) 120 MG 00 24 hr capsule celecoxib 2019- Yes Roman (CeleBREX) 603 [facility] 200 MG 00:00: st capsule 00 exemestane 0 Yes Roman (AROMASIN) 5-14 [facility] 25 mg chemo 00:00: st tablet 00 denosumab Yes 60mg 60 mg. Svitlana n (Prolia) 60 5-22 [facility] mg/mL 00:00: st syringe 00 syringe pantoprazol 2015-08 Yes 40mg Take 40 mg Roman e 08 by mouth. [facility] (PROTONIX) 00:00: st 40 MG EC 00 tablet Vital Signs Vital Name Observation Time Observation Value Comments Source Body height 2020-02-23 09:08:00 154.9 cm Roman Fitzgerald Body weight 2020-02-23 09:08:00 53.524 kg Roman Fitzgerald BMI 2020-02-23 09:08:00 22.30 kg/m2 Roman Fitzgerald Procedures Procedure Date / Time Performed Performing Clinician Sourc e XR CERVICAL SPINE 2020-02-23 09:59:13 William Kerr ethodist COMPLETE W FLEX EXT XR LUMBAR SPINE COMPLETE 2020-02-23 09:55:09 William Kerr 4+ VW Plan of Care Planned Activity Planned Date Details Comments Source Future Scheduled 2021-03-27 INFLUENZA VACCINE Svitlana [facility] 00:00:00 [code = INFLUENZA VACCINE] Future Scheduled 2010 BREAST CANCER [facility] Test 00:00:00 SCREENING [code = BREAST CANCER SCREENING] Future Scheduled 2010 COLONOSCOPY SCREENING [place] [facility] Test 00:00:00 [code = COLONOSCOPY SCREENING] Future Scheduled 2010 SHINGLES VACCINES [place] [facility] 00:00:00 (#1) [code = SHINGLES VACCINES (#1)] Future Scheduled 1981 Screening for [place] [facility] Test 00:00:00 malignant neoplasm of cervix (procedure) [code = 966241269] Future Scheduled 1978 Hepatitis C screening [place] [facility] Test 00:00:00 (procedure) [code = 593616672] Future Scheduled 1972 COVID-19 VACCINE (1) Kevan st[facility] Test 00:00:00 [code = COVID-19 VACCINE (1)] Encounters Start End Encounter Admission Attending Care Care Encounter Source Date/Time Date/Time Type Type Clinicians Facility Department ID 2020-04-05 2020-04-05 Outpatient [facility] [id number] [place] 00:00:00 00:00:[address] WILLIAM [address] 2020-02-23 2020-02-23 Outpatient [facility] [id number] [place] 00:00:00 00:00:00 WILLIAM [address] 2020-02-23 2020-02-23 Outpatient [facility] [id number] [place] 00:00:00 00:00:00 WILLIAM [address] 2020-02-23 2020-02-23 Outpatient [facility] [id number] [place] 00:00:00 00:00:00 WILLIAM [address] Results This patient has no known results.
--- NOTE | 2021-02-18 22:57 | ER ---
Nurse's Notes [facility] Name: Mikey Muniz Age: 60 yrs Sex: Female : 1960 Arrival Date: 02/18/2021 Time: 19:37 Bed 13 Private MD: Diagnosis: Presentation: 02/18 19:54 Chief complaint: Patient states: Lower abdominal pain x 1 week. Alternating ca1 constipation and diarrhea, nausea. HX of Diverticulitis. Coronavirus screen: Client denies travel out of the [place] in the last 14 days. nausea. Ebola Screen: Patient negative for fever greater than or equal to 101.5 degrees Fahrenheit, and additional compatible Ebola Virus Disease symptoms Patient denies exposure to infectious person. Patient denies travel to an Ebola-affected area in the 21 days before illness onset. No symptoms or risks identified at this time. Initial Sepsis Screen: Does the patient meet any 2 criteria? No. Patient's initial sepsis screen is negative. Does the patient have a suspected source of infection? No. Patient's initial sepsis screen is negative. Risk Assessment: Do you want to hurt yourself or someone else? Patient reports no desire to harm self or others. Onset of symptoms was February 11, 2021. 19:54 Method Of Arrival: Ambulatory ca1 19:54 Acuity: YUE 3 ca1 Historical: - Allergies: 19:58 Amitriptyline; ca1 19:58 Ativan; ca1 19:58 Augmentin; ca1 19:58 Cipro; ca1 19:58 Codeine; ca1 19:58 Demerol; ca1 19:58 Fentanyl; ca1 19:58 Morphine; ca1 19:58 Reeds; ca1 19:58 NSAIDS; ca1 - PMHx: 19:58 Cancer, Breast; Ankylosing Spondylitis; Diverticulitis; neuropathy; Ovarian cyst; ca1 - Immunization history:: Client reports having NOT received the Covid vaccine. Flu vaccine is up to date. - Social history:: Smoking status: Patient denies any tobacco usage or history of. Vital Signs: 19:54 BP 135 / 86; Pulse 106; Resp 18 S; Temp 97.8(TE); Pulse Ox 97% on R/A; Weight 53.52 kg ca1 (R); Height 5 ft. 1 in. (154.94 cm) (R); Pain 4/10; 19:54 Body Mass Index 22.30 (53.52 kg, 154.94 cm) ca1 ED Course: 19:37 Patient arrived in ED. bp1 19:56 Triage completed. ca1 19:58 Arm band placed on right wrist. ca1 Administered Medications: No medications were administered Outcome: 22:57 Patient left the ED. em Signatures: Sae Anguiano RN RN em Yenni Lehman RN RN ca1 Rose Pruett bp1
[2021-02-18 23:25] VITALS: BP 135/86; TEMP 97.8; O2SAT 97
== END 2021-02-18 22:57 | disposition left against medical advice (07) ==
LOC: ER 19:32
DX: Z02.9 Encounter for administrative examinations, unspecified (principal)

== ENCOUNTER 2021-02-19 07:34 | Observation (INO) | payer OTHER ==
--- OUTSIDE RECORDS SUMMARY | 2021-02-19 07:36 | XMS REPORT | Continuity of Care Document ---
:1960 Author Organization [facility] t Address [address] [place] [address] Care Team Providers Name Role Phone John MENDEZ, Aries Najera Primary Care Physician Jemima Kerr MD Attending Clinician Payers Payer Name Policy Type Policy Effective Date Expiration Date Sour ce Number AETNA MEDICAREAETNA [id number] 2019 [place] MED[place] H[place]/PPO 0 00:00:00 Methodis t [id number] Problems This patient has no known problems. [...] to drug Solifena Propensi Active Other ([facility] [place] stephie [facility] to Comments) 02-22 . Methodi adverse 00:00: st reaction 00 s to drug Amitript [facility] Active Other ([facility] [place] yline ty to Comments) 02-22 Method[facility] adverse [...] Date Stop Date Source Natural brother Cancer [facility] ethodist Natural father Cancer [place] [facility] Natural father Stroke [place] [facility] Maternal grandfather Cancer [place] [facility] Maternal grandmother Cancer [place] [employer] Paternal aunt Cancer [place] [facility] Paternal grandmother Stroke [place] [employer] Social History Social Habit Start Date Stop Date Quantity Comments Source Tobacco use and 2020-02-23 2020-02-23 Never used [facility] ethodist exposure 00:00:00 00:00:00 Alcohol intake 2020-02-23 2020-02-23 Ex-drinker [place] [facility] 00:00:00 00:00:00 (finding) Sex Ass[birth year] [facility] ethodist 00:00:00 00:00:00 Smoking Status Start Date Stop Date Source Never smoker [place] [facility] t Medications Ordered Filled Start Stop [...] Future Scheduled 2021-03-27 INFLUENZA VACCINE Svitlana d[facility] Test 00:00:00 [code = INFLUENZA VACCINE] Future Scheduled 2010 BREAST CANCER [facility] Test 00:00:00 SCREENING [code = BREAST CANCER SCREENING] Future Scheduled 2010 COLONOSCOPY SCREENING [place] [facility] Test 00:00:00 [code = COLONOSCOPY SCREENING] Future Scheduled 2010 SHINGLES VACCINES [place] [facility] Test 00:00:00 (#1) [code = SHINGLES VACCINES (#1)] Future Scheduled 1981 Screening for [place] [facility] Test 00:00:00 malignant neoplasm of cervix (procedure) [code = 320267138] Future Scheduled 1978 Hepatitis C screening [place] [facility] Test 00:00:00 (procedure) [code = 303808909] Future Scheduled 1972 COVID-19 VACCINE (1) Kevan ston [facility] Test 00:00:00 [code = COVID-19 VACCINE (1)] Encounters Start End Encounter Admission Attending Care Care Encounter Source Date/Time Date/Time Type Type Clinicians Facility Department ID 2020-04-05 2020-04-05 Outpatient [facility] [id number] [address] [place] 00:00:00 00:00:00 WILLIAM [address] 2020-02-23 2020-02-23 Outpatient [facility] [id number] [address] [place] 00:00:00 00:00:00 WILLIAM [address] 2020-02-23 2020-02-23 Outpatient [facility] [id number] [address] [place] 00:00:00 00:00:00 WILLIAM [address] 2020-02-23 2020-02-23 Outpatient [facility] [id number] [address] [place] 00:00:00 00:00:00 WILLIAM [address] Results This patient has no known results.
[2021-02-19 07:53] LABS: Urine Blood 3+ (Negative); Urine Glucose Negative (Negative); Urine Protein 1+ (Negative); Urine Specific Gravity 1.025 (1.005-1.030); Urine pH 5.5 (5.0-7.0)
[2021-02-19 08:13] LABS: Absolute Lymphocytes (CBC) 1.1 K/uL (0.7-4.9); Basophils % 0.3 % (0-1.3); Hematocrit 41.8 % (36.0-45.0); Lymphocytes % 16.3 % (15.3-44.8); MPV 9.5 fL (7.6-11.3); RBC Red Blood Cell Count 4.58 M/uL (3.86-4.86)
[2021-02-19] MEDS ORDERED: NA CHLORIDE 0.9% 1,000 ML ONE (08:16)
[2021-02-19 08:24] LABS: Protime INR 1.14
[2021-02-19 08:32] LABS: ALT/SGPT 20 U/L (12-78); AST/SGOT 13 U/L (15-37); Albumin 3.3 g/dL (3.4-5.0); Alkaline Phosphatase 79 U/L (45-117); BUN Blood Urea Nitrogen 16 mg/dL (7-18); Bicarbonate 28 mmol/L (21-32); Bilirubin Direct 0.2 mg/dL (0-0.2); Bilirubin Total 0.9 mg/dL (0.2-1.0); Glucose Level 88 mg/dL (74-106); Lipase 65 U/L (73-393); Magnesium 2.3 mg/dL (1.8-2.4); NT PRO-BNP 137 pg/mL (<125); Potassium 3.6 mmol/L (3.5-5.1); Protein, Total 7.8 g/dL (6.4-8.2); Sodium Level 140 mmol/L (136-145); Troponin (Emerg Dept Use Only) < 0.02 ng/mL (0.0-0.045)
--- NOTE | 2021-02-19 09:05 | RAD REPORT ---
EXAM DESCRIPTION: RAD - Chest Single View - 02/19/2021 8:05 am CLINICAL HISTORY: ABDOMINAL DISTENTION, bilateral mastectomy for left breast carcinoma COMPARISON: Two view chest February 03 TECHNIQUE: AP portable chest image was obtained 02/19/2021 8:05 am . FINDINGS: Patient has a mild baseline interstitial pattern that matches comparison. No superimposed failure, infiltrate or mass. Numerous surgical clips overlie the bilateral chest. Breast soft tissue is present. This may be loose sagging tissue after mastectomy. Patient may have had reconstruction th at was not detailed in the history. Heart and vasculature are normal. No measurable pleural effusion and no pneumothorax. No acute bony abnormality seen. No acute aortic findings suspected. IMPRESSION: No acute cardiopulmonary process. No significant change from comparison study.
--- NOTE | 2021-02-19 09:42 | RAD REPORT ---
EXAM DESCRIPTION: CT - Abdomen Pelvis W Contrast - 02/19/2021 9:15 am CLINICAL HISTORY: ABD PAIN COMPARISON: CT imaging February 2020 TECHNIQUE: Biphasic, helical CT imaging of the abdomen and pelvis was performed following 100 ml non -ionic IV contrast. No oral contrast administered. All CT scans are performed using dose optimization technique as appropriate and may include automated exposure control or mA/KV adjustment according to patient size. FINDINGS: No suspicious findings in the lung bases. The liver, spleen, and pancreas show no suspicious findings. Gallbladder and biliary tree are also wi thout suspicious finding. Symmetric renal function is seen with no hydronephrosis or suspicious renal mass. Punctate nonobstruc ting calyx calculi noted in each kidney. No pyelonephritis or acute parenchymal process. No bladder a bnormalities. No adrenal abnormalities. Urinary bladder is contracted limiting assessment. Uterus is absent. Ovaries are absent or atrophic. No stomach or small bowel abnormality identified. Appendix is surgically absent by history. Cecum thr ough the mid sigmoid colon shows no acute finding. Patient has very prominent left-sided diverticulos is. Distal sigmoid is redundant. There is long segment circumferential wall thickening involving the distal sigmoid colon and proximal rectum. Adjacent edema or stranding is present. No discrete mass le mateo free air, extraluminal content or other surgically emergent finding. No hernia, mass or bulky lymphadenopathy. No suspicious bony findings. Disc and bone degenerative changes are present most notable at L5-S1. IMPRESSION: [id number] acute diverticulitis involving the distal sigmoid colon and proximal re ctum. No abscess, free air, extraluminal bowel content or other surgically emergent finding.
--- NOTE | 2021-02-19 10:10 | EDPHYS ---
Physician Documentation [facility] Name: Mikey Muniz Age: 60 yrs Sex: Female : 1960 Arrival Date: 02/19/2021 Time: 07:37 Bed 7 Private MD: Meghan Puckett C ED Physician Cristnio Barone HPI: 02/19 10:04 This 60 yrs old Female presents to ER via Ambulatory with complaints of judie Abdominal Pain. 10:04 The patient presents with abdominal pain in the lower abdomen. Onset: The judie symptoms/episode began/occurred 5 day(s) ago. The symptoms do not radiate. Associated signs and symptoms: none. The symptoms are described as crampy. Modifying factors: The symptoms are alleviated by nothing, the symptoms are aggravated by movement, pressure, walking. Severity of pain: At its worst the pain was mild moderate in the emergency department the pain is unchanged. The patient has not experienced similar symptoms in the past. Historical: - Allergies: 08:08 Cipro; ea 08:08 Ativan; ea 08:08 Augmentin; ea 08:08 Codeine; ea 08:08 Demerol; ea 08:08 Fentanyl; ea 08:08 Morphine; ea 08:08 Arimidex; ea 08:08 fluocinolone; ea 08:08 hydrocodone; ea - Home Meds: 08:08 Prolia subcutaneous yearly [Active]; Arava 10 mg oral tab 1 tab once daily [Active]; ea calcium [Active]; d3 [Active]; magnesium [Active]; chlorahexadine [Active]; fluticazone [Active]; neomycin-polymyxin B-dexameth 3.5 mg/g-10,000 unit/g-0.1 % Opht oint once daily [Active]; olopatadine [Active]; orencia [Active]; 08:11 aspirin 81 mg Oral TbEC 1 tab once daily [Active]; diltiazem HCl 120 mg Oral tab ea [Active]; exemestane 25 mg Oral tab 1 tab [Active]; folic acid 1 mg Oral tab [Active]; gabapentin 300 mg Oral cap 1 cap AT NIGHT for Neuropathic Pain [Active]; meclizine 12.5 mg Oral tab [Active]; pantoprazole 40 mg Oral TbEC 1 tab once daily [Active]; - PMHx: 08:11 Ankylosing Spondylitis; Cancer, Breast; Diverticulitis; neuropathy; Ovarian cyst; anal ea fissure; TIA; 08:13 vertigo; gastritis; heart arrhythmia; Migraines; ea - PSHx: 08:11 Tonsillectomy; Appendectomy; anal fissure repair; meniuscus repair; ea 08:13 colon surgery; ea - Immunization history:: Adult Immunizations up to date. - Social history:: Smoking status: unknown Patient uses. - Family history:: not pertinent. ROS: 10:04 Constitutional: Negative for fever, chills, and weight loss, Eyes: Negative for injury, judie pain, redness, and discharge, ENT: Negative for injury, pain, and discharge, Neck: Negative for injury, pain, and swelling, Cardiovascular: Negative for chest pain, palpitations, and edema, Respiratory: Negative for shortness of breath, cough, wheezing, and pleuritic chest pain, Back: Negative for injury and pain, : Negative for injury, bleeding, discharge, and swelling, MS/Extremity: Negative for injury and deformity, Skin: Negative for injury, rash, and discoloration, Neuro: Negative for headache, weakness, numbness, tingling, and seizure, Psych: Negative for depression, anxiety, suicide ideation, homicidal ideation, and hallucinations, Allergy/Immunology: Negative for hives, rash, and allergies, Endocrine: Negative for neck swelling, polydipsia, polyuria, polyphagia, and marked weight changes, Hematologic/Lymphatic: Negative for swollen nodes, abnormal bleeding, and unusual bruising. 10:04 Abdomen/GI: Positive for abdominal pain, of the right lower quadrant and left lower quadrant. Exam: 10:04 Constitutional: This is a well developed, well nourished patient who is awake, alert, judie and in no acute distress. Head/Face: Normocephalic, atraumatic. Eyes: Pupils equal round and reactive to light, extra-ocular motions intact. Lids and lashes normal. Conjunctiva and sclera are non-icteric and not injected. Cornea within normal limits. Periorbital areas with no swelling, redness, or edema. ENT: Nares patent. No nasal discharge, no septal abnormalities noted. Tympanic membranes are normal and external auditory canals are clear. Oropharynx with no redness, swelling, or masses, exudates, or evidence of obstruction, uvula midline. Mucous membranes moist. Neck: Trachea midline, no thyromegaly or masses palpated, and no cervical lymphadenopathy. Supple, full range of motion without nuchal rigidity, or vertebral point tenderness. No Meningismus. Chest/axilla: Normal chest wall appearance and motion. Nontender with no deformity. No lesions are appreciated. Cardiovascular: Regular rate and rhythm with a normal S1 and S2. No gallops, murmurs, or rubs. Normal PMI, no JVD. No pulse deficits. Respiratory: Lungs have equal breath sounds bilaterally, clear to auscultation and percussion. No rales, rhonchi or wheezes noted. No increased work of breathing, no retractions or nasal flaring. Back: No spinal tenderness. No costovertebral tenderness. Full range of motion. Female : Normal external genitalia. Skin: Warm, dry with normal turgor. Normal color with no rashes, no lesions, and no evidence of cellulitis. MS/ Extremity: Pulses equal, no cyanosis. Neurovascular intact. Full, normal range of motion. Neuro: Awake and alert, GCS 15, oriented to person, place, time, and situation. Cranial nerves II-XII grossly intact. Motor strength 5/5 in all extremities. Sensory grossly intact. Cerebellar exam normal. Normal gait. Psych: Awake, alert, with orientation to person, place and time. Behavior, mood, and affect are within normal limits. 10:04 Abdomen/GI: Inspection: distension, that is mild, Bowel sounds: normal, in all quadrants, Palpation: moderate abdominal tenderness, in the right lower quadrant and left lower quadrant, Liver: no appreciated palpable abnormalities, Hernia: not appreciated. 10:23 ECG was reviewed by the Attending Physician. [facility] Vital Signs: 08:19 BP 120 / 85; Pulse 88; Resp 18; Pulse Ox 100% on R/A; ea 08:50 Temp 98.3; Weight 53.52 kg; Height 5 ft. 1 in. (154.94 cm); ea 09:30 BP 123 / 76; Pulse 88; Resp 20; Pulse Ox 100% on R/A; kg 10:00 BP 131 / 93; Pulse 89; Resp 20; Pulse Ox 100% on R/A; kg 11:00 BP 125 / 95; Pulse 90; Resp 20; Pulse Ox 100% on R/A; kg 08:50 Body Mass Index 22.30 (53.52 kg, 154.94 cm) ea MDM: 07:45 Patient medically screened. [facility] 10:06 Differential diagnosis: diverticulitis, gastritis, non-specific abd pain, pancreatitis, judie Peptic Ulcer Disease, Pyelonephritis, urinary tract infection. Data reviewed: vital signs, nurses notes, lab test result(s), EKG, radiologic studies, CT scan, plain films. Data interpreted: air sampling and monitoring: rate is 88 beats/min, rhythm is regular, Pulse oximetry: on room air is 100 %. Test interpretation: by ED physician or midlevel provider: ECG, plain radiologic studies. Counseling: I had a detailed discussion with the patient and/or guardian regarding: the historical points, exam findings, and any diagnostic results supporting the discharge/admit diagnosis, lab results, radiology results, the need for further work-up and treatment in the hospital. 02/19 07:47 Order name: Basic Metabolic Panel [facility] 02/19 07:47 Order name: CBC with Diff [facility] 02/19 07:47 Order name: LFT's [facility] 02/19 07:47 Order name: Magnesium [facility] 02/19 07:47 Order name: NT PRO-BNP [facility] 02/19 07:47 Order name: PT-INR [facility] 02/19 07:47 Order name: Troponin (emerg Dept Use Only) [facility] 02/19 07:47 Order name: Lipase [facility] 02/19 07:47 Order name: Urine Culture [facility] 02/19 07:48 Order name: Basic Metabolic Panel; Complete Time: 09:13 [facility] 02/19 07:48 Order name: CBC with Automated Diff; Complete Time: 09:13 [facility] 02/19 07:48 Order name: Liver (Hepatic) Function; Complete Time: 09:13 [facility] 02/19 07:48 Order name: Magnesium; Complete Time: 09:13 [facility] 02/19 07:48 Order name: NT PRO-BNP; Complete Time: 09:13 [facility] 02/19 07:47 Order name: XRAY Chest (1 view); Complete Time: 09:13 [facility] 02/19 07:47 Order name: EKG; Complete Time: 07:48 [facility] 02/19 07:47 Order name: Cardiac monitoring; Complete Time: 07:53 [facility] 02/19 07:47 Order name: EKG - Nurse/Tech; Complete Time: 07:59 [facility] 02/19 07:47 Order name: IV Saline Lock; Complete Time: 07:53 [facility] 02/19 07:47 Order name: Labs collected and sent; Complete Time: 07:59 [facility] 02/19 07:47 Order name: O2 Per Protocol; Complete Time: 07:53 [facility] 02/19 07:47 Order name: CT Abd/Pelvis - IV Contrast Only; Complete Time: 10:04 [facility] 02/19 07:48 Order name: Protime (+INR); Complete Time: 09:13 [facility] 02/19 07:48 Order name: Troponin (Emerg Dept Use Only); Complete Time: 09:13 [facility] 02/19 07:48 Order name: Lipase; Complete Time: 09:13 [facility] 02/19 07:53 Order name: Urine Dipstick-Ancillary; Complete Time: 09:13 [facility] 02/19 11:45 Order name: SARS-COV-2 RT PCR [facility] 02/19 07:47 Order name: O2 Sat Monitoring; Complete Time: 07:54 [facility] 02/19 07:47 Order name: Urine Dipstick-Ancillary (obtain specimen); Complete Time: 08:15 [facility] EC:23 Rate is 91 beats/min. Rhythm is regular. QRS [place] is Normal. [place] interval is normal. QRS judie interval is normal. QT interval is normal. No Q waves. T waves are Normal. No ST changes noted. Clinical impression: NSR w/ Non-specific ST/T Changes and No evidence of ischemia. Interpreted by me. Reviewed by me. Administered Medications: 08:00 Drug: NS 0.9% 1000 ml Route: IV; Rate: 1 bolus; Site: right antecubital; kg 08:50 Follow up: Response: No adverse reaction; IV Intake: 1000ml ea 11:14 Drug: Zosyn (piperacillin-tazobactam) 3.375 grams Route: IVPB; Infused Over: 60 mins; ea Site: right antecubital; Disposition: 02/19/21 10:10 Hospitalization ordered by Meghan Puckett for Inpatient Admission. Preliminary diagnosis are Abdominal tenderness, Diverticulitis of large intestine without perforation or abscess without bleeding - mild to moderate distal sigmoid and proximal rectum. - Bed requested for Telemetry/MedSurg (Inpatient). - Status is Inpatient Admission. tr6 - Condition is Stable. - Problem is new. - Symptoms have improved. Signatures: Dispatcher [employer] [facility] Cristino Barone MD MD cha Antunez, Elena RN RN Reny Fuentes Dafne Rizzo RN RN tr6 Emma Corado RN RN kg Corrections: (The following items were deleted from the chart) 10:50 10:23 CORONAVIRUS+MR.LAB.BRZ ordered. [facility] 12:20 10:10 Hospitalization Ordered by A Lavern MENDEZ for Inpatient Admission. Preliminary eb diagnosis is Abdominal tenderness; Diverticulitis of large intestine without perforation or abscess without bleeding - mild to moderate distal sigmoid and proximal rectum. Bed requested for Telemetry/MedSurg (Inpatient). Status is Inpatient Admission. Condition is Stable. Problem is new. Symptoms have improved. judie 13:39 12:20 02/19/2021 10:10 Hospitalization Ordered by A Lavern MENDEZ for Inpatient Admission. tr6 Preliminary diagnosis is Abdominal tenderness; Diverticulitis of large intestine without perforation or abscess without bleeding - mild to moderate distal sigmoid and proximal rectum. Bed requested for Telemetry/MedSurg (Inpatient). Status is Inpatient Admission. Condition is Stable. Problem is new. Symptoms have improved. eb
--- NOTE | 2021-02-19 10:10 | ER ---
Nurse's Notes [facility] Name: Mikey Muniz Age: 60 yrs Sex: Female : 1960 Arrival Date: 02/19/2021 Time: 07:37 Bed 7 Private MD: Meghan Puckett C Diagnosis: Abdominal tenderness;Diverticulitis of large intestine without perforation or abscess without bleeding-mild to moderate distal sigmoid and proximal rectum Presentation: 02/19 08:21 Chief complaint: Patient states: lower abdominal pain gradually worsening over the past ea few days. pt states that this pain is very similar to when she had Diverticulitis in the past. Coronavirus screen: Client denies travel out of the [place] in the last 14 days. Ebola Screen: Patient negative for fever greater than or equal to 101.5 degrees Fahrenheit, and additional compatible Ebola Virus Disease symptoms Patient denies exposure to infectious person. Patient denies travel to an Ebola-affected area in the 21 days before illness onset. Initial Sepsis Screen: Does the patient meet any 2 criteria? No. Patient's initial sepsis screen is negative. Does the patient have a suspected source of infection? No. Patient's initial sepsis screen is negative. Risk Assessment: Do you want to hurt yourself or someone else? Patient reports no desire to harm self or others. Onset of symptoms is unknown. 08:21 Acuity: YUE 3 ea 08:21 Method Of Arrival: Ambulatory ea Historical: - Allergies: 08:08 Cipro; ea 08:08 Ativan; ea 08:08 Augmentin; ea 08:08 Codeine; ea 08:08 Demerol; ea 08:08 Fentanyl; ea 08:08 Morphine; ea 08:08 Arimidex; ea 08:08 fluocinolone; ea 08:08 hydrocodone; ea - Home Meds: 08:08 Prolia subcutaneous yearly [Active]; Arava 10 mg oral tab 1 tab once daily [Active]; ea calcium [Active]; d3 [Active]; magnesium [Active]; chlorahexadine [Active]; fluticazone [Active]; neomycin-polymyxin B-dexameth 3.5 mg/g-10,000 unit/g-0.1 % Opht oint once daily [Active]; olopatadine [Active]; orencia [Active]; 08:11 aspirin 81 mg Oral TbEC 1 tab once daily [Active]; diltiazem HCl 120 mg Oral tab ea [Active]; exemestane 25 mg Oral tab 1 tab [Active]; folic acid 1 mg Oral tab [Active]; gabapentin 300 mg Oral cap 1 cap AT NIGHT for Neuropathic Pain [Active]; meclizine 12.5 mg Oral tab [Active]; pantoprazole 40 mg Oral TbEC 1 tab once daily [Active]; - PMHx: 08:11 Ankylosing Spondylitis; Cancer, Breast; Diverticulitis; neuropathy; Ovarian cyst; anal ea fissure; TIA; 08:13 vertigo; gastritis; heart arrhythmia; Migraines; ea - PSHx: 08:11 Tonsillectomy; Appendectomy; anal fissure repair; meniuscus repair; ea 08:13 colon surgery; ea - Immunization history:: Adult Immunizations up to date. - Social history:: Smoking status: unknown Patient uses. - Family history:: not pertinent. Screenin:20 Abuse screen: Denies threats or abuse. Denies injuries from another. Nutritional ea screening: No deficits noted. Tuberculosis screening: No symptoms or risk factors identified. Fall Risk None identified. Assessment: 08:18 General: Appears in no apparent distress. comfortable, slender, well groomed, Behavior ea is calm, cooperative, appropriate for age. Pain: Complains of pain in lower abdominal pain and right lower back Pain began gradually, Also complains of constipation. Neuro: No deficits noted. Cardiovascular: No deficits noted. Respiratory: No deficits noted. GI: Abdomen is flat, non-distended, Bowel sounds present X 4 quads. Abd is soft and non tender Reports lower abdominal pain, constipation. : No deficits noted. EENT: No deficits noted. Derm: No deficits noted. Musculoskeletal: No deficits noted. Vital Signs: 08:19 BP 120 / 85; Pulse 88; Resp 18; Pulse Ox 100% on R/A; ea 08:50 Temp 98.3; Weight 53.52 kg; Height 5 ft. 1 in. (154.94 cm); ea 09:30 BP 123 / 76; Pulse 88; Resp 20; Pulse Ox 100% on R/A; kg 10:00 BP 131 / 93; Pulse 89; Resp 20; Pulse Ox 100% on R/A; kg 11:00 BP 125 / 95; Pulse 90; Resp 20; Pulse Ox 100% on R/A; kg 08:50 Body Mass Index 22.30 (53.52 kg, 154.94 cm) ea ED Course: 07:37 Patient arrived in ED. am2 07:37 Meghan Puckett MD is Private Physician. am2 07:45 Cristino Barone MD is Attending Physician. judie 07:46 Emma Corado, RN is Primary Nurse. kg 07:57 Inserted saline lock: 20 gauge in left antecubital area, using aseptic technique. kg 07:59 Troponin (emerg Dept Use Only) Sent. kg 07:59 PT-INR Sent. kg 07:59 NT PRO-BNP Sent. kg 07:59 Magnesium Sent. kg 07:59 LFT's Sent. kg 07:59 CBC with Diff Sent. kg 07:59 Basic Metabolic Panel Sent. kg 07:59 Lipase Sent. kg 07:59 Magnesium Sent. kg 07:59 NT PRO-BNP Sent. kg 08:00 Protime (+INR) Sent. kg 08:00 Troponin (Emerg Dept Use Only) Sent. kg 08:00 Liver (Hepatic) Function Sent. kg 08:00 CBC with Automated Diff Sent. kg 08:00 Basic Metabolic Panel Sent. kg 08:04 XRAY Chest (1 view) In Process Unspecified. EDMS 08:20 Resting quietly. Awaiting lab results. ea 08:20 No provider procedures requiring assistance completed. ea 08:20 Patient has correct armband on for positive identification. Bed in low position. Call ea light in reach. Side rails up X2. Pulse ox on. NIBP on. Door closed. Noise minimized. Visitors limited. Lights dimmed. Moved to private room. Warm blanket given. Diet: Patient is NPO. 08:22 Triage completed. ea 08:22 Patient notified of wait time. ea 08:27 EKG done, by ED staff, reviewed by Cristino Barone MD. em1 09:14 CT Abd/Pelvis - IV Contrast Only In Process Unspecified. EDMS 10:08 Meghan Puckett MD is Hospitalizing Provider. judie 13:00 Patient admitted, IV remains in place. tr6 Administered Medications: 08:00 Drug: NS 0.9% 1000 ml Route: IV; Rate: 1 bolus; Site: right antecubital; kg 08:50 Follow up: Response: No adverse reaction; IV Intake: 1000ml ea 11:14 Drug: Zosyn (piperacillin-tazobactam) 3.375 grams Route: IVPB; Infused Over: 60 mins; ea Site: right antecubital; Intake: 08:50 IV: 1000ml; Total: 1000ml. ea Outcome: 10:10 Decision to Hospitalize by Provider. judie 13:00 Admitted to Med/surg accompanied by tech, via wheelchair, room 214. tr6 13:00 Condition: stable 13:00 Instructed on the need for admit, Demonstrated understanding of instructions, follow-up care, medications. 13:39 Patient left the ED. tr6 Signatures: Dispatcher [employer] EDMS Cristino Barone MD MD cha Martinez, Eric em1 Moreno, Amanda am2 Antunez, Elena, RN Dafne Oseguera ea, RN RN tr6 Emma Corado RN RN kg
[2021-02-19] MEDS ORDERED: PIPERACIL/TAZO 3.375 GM VIAL IV ONE ×2 (10:49→11:20)
[2021-02-19] MEDS ORDERED: NA CHLORIDE 0.9% 50 ML ONE (11:30)
[2021-02-19] MEDS ORDERED: SODIUM CHLORIDE 0.9% 10ML INJ IV PRN (12:29)
[2021-02-19] MEDS ORDERED: D5 0.45 NS 1,000 ML IV SCH (13:01)
[2021-02-19] MEDS ORDERED: ONDANSETRON 4 MG/2 ML VIAL IV PRN (13:01)
[2021-02-19] MEDS ORDERED: ACETAMINOPHEN 325 MG TABLET PO PRN (13:14)
[2021-02-19] MEDS ORDERED: HYDROMORPHONE HCL 0.5 MG/0.5 ML INJ IV PRN (13:18)
[2021-02-19] MEDS: D5 0.45 NS 1,000 ML IV SCH (15:16)
[2021-02-19 15:32] VITALS: BMI 22.3
[2021-02-19] MEDS: PIPER/TAZO/NS 3.375gm 3.375 GM/100 ML BAG IVPB SCH (16:32)
[2021-02-19] MEDS ORDERED: ENOXAPARIN 30 MG/0.3 ML SQ SCH (17:00)
[2021-02-19] MEDS ORDERED: POTASSIUM CL SA 10 MEQ TAB PO ONE (17:00)
--- NOTE | 2021-02-19 19:23 | HP ---
Date of Admission: 02/19/2021 Chief Complaint: Abdominal pain. History Of Present Illness: This is a 60-year-old female patient who came into emergency room with 1-week history of lower abdominal pain. The patient says in the last couple of days, her pain got worse and yesterday, she had fever and nausea. She came to emergency room yesterday, but she left without being seen yesterday and she came back to emergency room today. After she was evaluated, she was admitted to the hospital with acute diverticulitis. Before I saw her this afternoon, nurse contacted me and informed me that the patient did not want to stay in hospital and she wanted to go home and she was willing to stay until I visited her and when I visited her, I explained her reason for her to stay in the hospital and she was agreeable to stay. Allergies: CODEINE CAUSING NAUSEA, VOMITING. AUGMENTIN CAUSING NAUSEA, VOMITING. HYDROCODONE CAUSING RASH. MORPHINE CAUSING SHORTNESS OF BREATH. DEMEROL CAUSING SHORTNESS OF BREATH. LORAZEPAM CAUSING NAUSEA, VOMITING. AMITRIPTYLINE CAUSING DIZZINESS. ARIMIDEX CAUSING JOINT PAIN. CIPRO CAUSING PALPITATION AND DIZZINESS. FEMARA ARE CAUSING JOINT PAIN. VESICARE CAUSING CONFUSION. Review of Systems: GI: As mentioned above. Constitutional: As mentioned above. All other systems reviewed and negative. Medications: Diltiazem 120 mg extended release capsule daily, fluticasone nasal spray 1 spray each nostril 2 times a day as needed for allergies, folic acid 1 mg daily, gabapentin 100 mg takes 3 capsules daily at bedtime, Leflunomide 10 mg daily, pantoprazole 40 mg daily. Past Medical History: Significant for TIA, peripheral neuropathy, gastroesophageal reflux disease, liver cyst, irritable bowel syndrome, diverticulosis, ulcerative colitis, breast cancer on the left side, status post chemotherapy and radiation therapy and surgery in form of bilateral mastectomy in 2013 and 2014. The patient developed postmastectomy lymphedema, also has lumbar spinal stenosis, osteoarthritis at multiple sites, rheumatoid arthritis, osteopenia. Past Surgical History: Tonsillectomy, bilateral mastectomy due to breast cancer on the left side, appendectomy, hemorrhoid surgery, surgery for anal fissure, hysterectomy, knee surgery, removal of ovarian cyst. Family History: Father had stroke. Mother had diabetes. Social History: Negative for smoking, alcohol use. Physical Examination: Vital Signs: Temperature 98.3, pulse 90, respiratory rate 20, blood pressure 125/95, oxygen saturation 100%, height 5 feet 1 inch, weight 118 pounds. General: Awake, alert, oriented, not in distress. HEENT: Head atraumatic, normocephalic. Conjunctivae nonerythematous. Sclerae white. Mouth, no thrush or edema noted. Ears/Nose, no mass, lesion, discharge noted. Neck: Supple. No JVD, lymph nodes, bruit, thyromegaly noted. Lungs: Bilateral good equal air entry. Clear to auscultation. No rhonchi. No rales. Heart: Normal heart sounds, no murmur or gallop. Abdomen: Soft, not distended. No hepatosplenomegaly. No bruit. Bowel sounds normal active. Mild tenderness in left lower quadrant. No rebound tenderness. Extremities: No leg edema. No calf tenderness. Skin: No rash, ulcer, cellulitis. Lymphatics: No lymph node enlargement in neck, supraclavicular, infraclavicular region. Neuro: No focal neurological deficit. Chest: Unremarkable. External Genitalia: Deferred. Rectal: Deferred. Laboratory Data: White count 6.9, hemoglobin 13.9, platelets 190. Sodium 140, potassium 3.6, chloride 107, bicarb 28, BUN 16, creatinine 0.74 glucose 88. Liver functions unremarkable. Troponin less than 0.02. Lipase 65. Urinalysis; 3+ blood, 1+ protein, otherwise negative. COVID-19 test negative. Chest x-ray no acute cardiopulmonary changes. CAT scan of abdomen with contrast shows [id number] acute diverticulitis involving distal sigmoid colon and proximal rectum. No abscess, no free air or any other surgical complications. The patient does have punctate nonobstructing calculi in both kidneys. Impression: 1. Acute diverticulitis, rectosigmoid area, without complication. 2. Kidney stones, asymptomatic. 3. Hypertension. 4. Gastroesophageal reflux disease. 5. Breast cancer, left side. 6. Peripheral neuropathy. 7. Osteoarthritis, multiple sites. 8. Rheumatoid arthritis. Plan: We will admit the patient to hospital for further evaluation and management of this problem. The patient is appropriate for inpatient and is expected to spend 2 midnights in the hospital. I explained her importance of staying in the hospital for IV antibiotic therapy at least for 24-48 hours and she was willing to stay. She is feeling very hungry. There is no signs of peritonitis and I will go ahead and start her on clear liquid diet. We will give IV Zosyn. She has tolerated that very well. Home medications will be continued per order. DVT prophylaxis will be given using Lovenox and I will see her tomorrow morning for followup. Her last colonoscopy with Dr. Mujica was March 2019 showing diverticulosis and hemorrhoids. GRAHAM/MODL Voice ID: [id number] MTDD
[2021-02-19] MEDS ORDERED: GABAPENTIN 300 MG CAP PO SCH (21:00)
[2021-02-19] MEDS: FAMOTIDINE 20 MG/2 ML VIAL IV SCH (21:24)
[2021-02-19] MEDS ORDERED: FAMOTIDINE 20 MG/2 ML VIAL IV ONE (21:30)
[2021-02-19] MEDS: DOCUSATE NA 100 MG CAP PO SCH (21:36)
[2021-02-20] MEDS: PIPER/TAZO/NS 3.375gm 3.375 GM/100 ML BAG IVPB SCH ×2 (00:39→10:14)
[2021-02-20] MEDS: D5 0.45 NS 1,000 ML IV SCH (05:49)
[2021-02-20 06:36] LABS: Absolute Lymphocytes (CBC) 0.9 K/uL (0.7-4.9); Basophils % 1.2 % (0-1.3); Hematocrit 38.8 % (36.0-45.0); Lymphocytes % 25.7 % (15.3-44.8); MPV 9.1 fL (7.6-11.3); RBC Red Blood Cell Count 4.25 M/uL (3.86-4.86)
[2021-02-20 06:42] LABS: BUN Blood Urea Nitrogen 8 mg/dL (7-18); Bicarbonate 25 mmol/L (21-32); Glucose Level 98 mg/dL (74-106); Magnesium 2.2 mg/dL (1.8-2.4); Potassium 3.7 mmol/L (3.5-5.1); Sodium Level 141 mmol/L (136-145)
--- NOTE | 2021-02-20 08:46 | EKG ---
Test Date: 2021-02-19 Test Time: 08:05:15 Metrologist: CHIOMA MEASUREMENT RESULTS: Intervals: Rate: 91 TN: 136 QRSD: 60 QT: 364 QTc: 447 [place]: P: 57 TN: 136 QRS: 50 T: 60 INTERPRETIVE STATEMENTS: Normal sinus rhythm Nonspecific ST and T wave abnormality Abnormal ECG Compared to ECG 11/25/2018 09:23:43 ST (T wave) deviation now present Electronically Signed On 02-20-21 08:43:28 CDT by Mele Braun
[2021-02-20] MEDS: DOCUSATE NA 100 MG CAP PO SCH (09:00)
[2021-02-20] MEDS ORDERED: PANTOPRAZOLE 40 MG INJ IVP SCH (09:00)
[2021-02-20] MEDS ORDERED: DILTIAZEM HCL 120 MG SR CAP PO SCH (09:00)
[2021-02-20] MEDS ORDERED: POTASSIUM CL SA 10 MEQ TAB PO ONE (09:00)
[2021-02-20] MEDS: FAMOTIDINE 20 MG/2 ML VIAL IV SCH (09:00)
[2021-02-20] MEDS ORDERED: FAMOTIDINE 20 MG/2 ML VIAL IV SCH (10:00)
[2021-02-20 10:26] VITALS: O2SAT 97
--- NOTE | 2021-02-20 12:39 | DS ---
Date of Discharge: 02/20/2021 Disposition: Discharged to go home. Physical Examination: HEENT: Unremarkable. Lungs: Clear to auscultation. Heart: Sounds normal. Abdomen: Soft. Bowel sounds normal. No guarding, rigidity, tenderness, distention. Extremities: No leg edema. Laboratory Data: Today; white count 3.4, hemoglobin 13.1, platelets 181. Sodium 141, potassium 3.7, chloride 109, bicarb 25, BUN 8, creatinine 0.59, glucose 98, magnesium 2.2. Discharge Medications And Instructions: 1. Continue all prior home medications. 2. Take Augmentin 500 mg 2 times a day with food for 10 days. 3. Take Zofran 4 mg, take 1 tablet 4 times a day as needed for nausea, vomiting and follow up at my office on Sunday, which is 02/23/2021 at 9 a.m. Final Diagnoses: 1. Acute diverticulitis, rectosigmoid area, without complication. 2. Kidney stones, asymptomatic. 3. Hypertension. 4. Gastroesophageal reflux disease. 5. Breast cancer, left side. 6. Peripheral neuropathy. 7. Osteoarthritis, multiple sites. 8. Rheumatoid arthritis. Hospital Course: This is a 60-year-old very pleasant female patient, admitted to the hospital with complaints of abdominal pain. Please see dictated H and P for more information. After the patient was evaluated in the ER, she was admitted to the hospital. IV antibiotic, Zosyn was started and she was started on clear liquid diet. She has tolerated that very well. Today, she feels much better. No new complaints or problems reported. She had some diarrhea type of bowel movement, but no constipation. The patient reports that in the past she has taken Augmentin and it does cause some nausea type of side effect, but she is able to manage that with nausea medication, so she should be able to take Augmentin on an outpatient basis. Overall, her condition is stable. She has appointment to see her brick shader, Dr. Mujica next month in February to plan to have colonoscopy for month of March, which is in 2 months from now and I have encouraged her to keep that appointment. The patient was discharged to go home in stable condition today with above-mentioned medications and instructions. GRAHAM/MODL Voice ID: [id number] Report ID: [id number] MTDD
[2021-02-20 15:19] VITALS: BP 139/77; TEMP 97.6
[2021-02-20] MEDS ORDERED: GABAPENTIN 100 MG CAP PO SCH (21:00)
== END 2021-02-20 13:00 | disposition home or self-care (01) ==
LOC: ER 07:34 → ERHOLD 10:19 → INTOOBSV 10:19 → 2ND 12:58
PROVIDERS: ADMIT Internal Medicine; ATTEND Internal Medicine
DX: K57.32 Diverticulitis of large intestine without perforation or abscess without bleeding (principal); I10 Essential (primary) hypertension; K21.9 Gastro-esophageal reflux disease without esophagitis; Z85.3 Personal history of malignant neoplasm of breast; G62.9 Polyneuropathy, unspecified; M15.9 Polyosteoarthritis, unspecified; Z20.822 Contact with and (suspected) exposure to COVID-19; M06.9 Rheumatoid arthritis, unspecified; Z86.73 Personal history of transient ischemic attack (TIA), and cerebral infarction without residual deficits; Z92.21 Personal history of antineoplastic chemotherapy; Z92.3 Personal history of irradiation; K76.89 Other specified diseases of liver; K51.90 Ulcerative colitis, unspecified, without complications; M85.80 Other specified disorders of bone density and structure, unspecified site
CPT/HCPCS: 93005; 87088; 85025 ×2; 87086; 80048 ×2; 36415; 83735 ×2; 85610; 80076; 81003; 84484; 83690; 83880; 74177; 71045; 96374; 99285; U0003; Q9967; J2543 ×3; J1650; J7799 ×2; J7030; G0378 ×3

== ENCOUNTER 2021-03-25 11:08 | Emergency (ER) | payer OTHER ==
--- OUTSIDE RECORDS SUMMARY | 2021-03-25 11:13 | XMS REPORT | Continuity of Care Document ---
:1960 Author Organization [facility] t Address [facility]ly [facility] [place] [address] Care Team Providers Name Role Phone RONAN WILLIAM Attending Clinician Unavailable Problems This patient has no known problems. Allergies, Adverse Reactions, Alerts This patient has no known allergies or adverse reactions. Medications This patient has no known medications. Procedures This patient has no known procedures. Encounters Start End Encounter Admission Attending Care Care Encounter Source Date/Time Date/Time Type Type Clinicians Facility Department ID 2020-04-05 2020-04-05 Outpatient [facility] [id number] 00:00:00 00:00:00 WILLIAM [address] 2020-02-23 2020-02-23 Outpatient [facility] [id number] 00:00:00 00:00:00 WILLIAM [address] 2020-02-23 2020-02-23 Outpatient [facility] [id number] 00:00:00 00:00:00 WILLIAM [address] 2020-02-23 2020-02-23 Outpatient [facility] [id number] 00:00:00 00:00:00 WILLIAM [address] Results This patient has no known results.
[2021-03-25 12:29] LABS: Urine Blood Trace-lysed (Negative); Urine Glucose Negative (Negative); Urine Protein Negative (Negative)
[2021-03-25 13:58] LABS: Absolute Lymphocytes (CBC) 0.9 K/uL (0.7-4.9); Basophils % 0.6 % (0-1.3); Hematocrit 40.8 % (36.0-45.0); Lymphocytes % 13.3 % (15.3-44.8); MPV 8.3 fL (7.6-11.3)
[2021-03-25 14:02] LABS: Urine Bacteria NONE SEEN /HPF (<20); Urine RBC <5 /HPF (NONE SEEN)
[2021-03-25] MEDS ORDERED: HYDROMORPHONE HCL 1 MG/ML INJ ONE (14:05)
[2021-03-25] MEDS ORDERED: HYDROMORPHONE HCL 0.5 MG/0.5 ML INJ ONE (14:07)
[2021-03-25] MEDS ORDERED: CEFTRIAXONE/SWI 1gm 1 GM/10 ML SYR ONE (14:07)
[2021-03-25 14:12] LABS: Potassium 4.2 mmol/L (3.5-5.1)
[2021-03-25] MEDS ORDERED: ONDANSETRON 4 MG/2 ML VIAL ONE ×2 (14:47→16:39)
--- NOTE | 2021-03-25 14:58 | EDPHYS ---
Physician Documentation [facility] Name: Mikey Muniz Age: 61 yrs Sex: Female : 1960 Arrival Date: 03/25/2021 Time: 11:26 Bed 24 Private MD: Meghan Puckett C ED Physician Cristino Barone HPI: 03/25 14:30 This 61 yrs old Female presents to ER via Ambulatory with complaints of Renal jr8 stone. 14:30 The patient complains of pain in the left flank. The pain does not radiate. Onset: The jr8 symptoms/episode began/occurred acutely, yesterday. Modifying factors: The symptoms are alleviated by nothing. the symptoms are aggravated by nothing. Associated signs and symptoms: The patient has no apparent associated signs or symptoms. Severity of pain: At its worst the pain was moderate in the emergency department the pain is unchanged. The patient has not experienced similar symptoms in the past. The patient has been recently seen by a physician:. Patient seen at [place] emergency room yesterday and was diagnosed with a renal stone on the left side. Patient had been having left flank pain with nausea. Patient was sent home on nausea medicine, antibiotics, Flomax, Pyridium. Patient stated that the pain did increase today and could not tolerate it.. Historical: - Allergies: 11:35 Arimidex; tw2 11:35 Ativan; tw2 11:35 Augmentin; tw2 11:35 Cipro; tw2 11:35 Codeine; tw2 11:35 Demerol; tw2 11:35 Fentanyl; tw2 11:35 fluocinolone; tw2 11:35 HYDROCODONE; tw2 11:35 Morphine; tw2 - Home Meds: 11:35 Arava 10 mg Oral tab 1 tab once daily [Active]; aspirin 81 mg Oral TbEC 1 tab once tw2 daily [Active]; calcium [Active]; chlorahexadine [Active]; d3 [Active]; diltiazem HCl 120 mg Oral tab [Active]; exemestane 25 mg Oral tab 1 tab [Active]; fluticazone [Active]; folic acid 1 mg Oral tab [Active]; gabapentin 300 mg Oral cap 1 cap AT NIGHT for Neuropathic Pain [Active]; Magnesium [Active]; meclizine 12.5 mg Oral tab [Active]; neomycin-polymyxin B-dexameth 3.5 mg/g-10,000 unit/g-0.1 % Opht oint once daily [Active]; olopatadine [Active]; ORENCIA [Active]; pantoprazole 40 mg Oral TbEC 1 tab once daily [Active]; Prolia subcutaneous yearly [Active]; - PMHx: 11:35 anal fissure; Ankylosing Spondylitis; Cancer, Breast; Diverticulitis; gastritis; heart tw2 arrhythmia; Migraines; neuropathy; Ovarian cyst; TIA; Vertigo; - Immunization history:: Adult Immunizations. - Social history:: Smoking status: . ROS: 14:30 Eyes: Negative for injury, pain, redness, and discharge, ENT: Negative for injury, jr8 pain, and discharge, Neck: Negative for injury, pain, and swelling, Cardiovascular: Negative for chest pain, palpitations, and edema, Respiratory: Negative for shortness of breath, cough, wheezing, and pleuritic chest pain, MS/Extremity: Negative for injury and deformity, Skin: Negative for injury, rash, and discoloration, Neuro: Negative for headache, weakness, numbness, tingling, and seizure. 14:30 Abdomen/GI: Positive for nausea and vomiting, Negative for abdominal pain. 14:30 Back: Positive for flank pain, on the left. Exam: 14:30 Constitutional: This is a well developed, well nourished patient who is awake, alert, jr8 and in no acute distress. Cardiovascular: Regular rate and rhythm with a normal S1 and S2. No gallops, murmurs, or rubs. Normal PMI, no JVD. No pulse deficits. Respiratory: Lungs have equal breath sounds bilaterally, clear to auscultation and percussion. No rales, rhonchi or wheezes noted. No increased work of breathing, no retractions or nasal flaring. Abdomen/GI: Soft, non-tender, with normal bowel sounds. No distension or tympany. No guarding or rebound. No evidence of tenderness throughout. Skin: Warm, dry with normal turgor. Normal color with no rashes, no lesions, and no evidence of cellulitis. MS/ Extremity: Pulses equal, no cyanosis. Neurovascular intact. Full, normal range of motion. Neuro: Awake and alert, GCS 15, oriented to person, place, time, and situation. Cranial nerves II-XII grossly intact. Motor strength 5/5 in all extremities. Sensory grossly intact. Cerebellar exam normal. Normal gait. 14:30 Back: CVA tenderness, that is mild, is noted on the left. Vital Signs: 11:34 BP 132 / 82; Pulse 86; Resp 18; Temp 98.1(TE); Pulse Ox 98% on R/A; Weight 53.07 kg tw2 (R); Pain 5/10; 15:50 BP 107 / 65; ap3 MDM: 12:26 Patient medically screened. jr8 14:37 Data reviewed: vital signs, nurses notes, lab test result(s). Data interpreted: Pulse jr8 oximetry: on room air is 98 %. Interpretation: normal. Counseling: I had a detailed discussion with the patient and/or guardian regarding: the historical points, exam findings, and any diagnostic results supporting the discharge/admit diagnosis, lab results, the need for outpatient follow up, a urologist, to return to the emergency department if symptoms worsen or persist or if there are any questions or concerns that arise at home. Response to treatment: the patient's symptoms have markedly improved after treatment. 14:56 ED course: Feeling much better after being medicated. Vital signs stable and without jr8 fever. Return precautions given otherwise patient needs to follow-up with urology at this point.. 03/25 12:29 Order name: Urine Dipstick-Ancillary; Complete Time: 12:29 EDMS 03/25 13:02 Order name: Basic Metabolic Panel; Complete Time: 14:19 jr8 03/25 13:02 Order name: CBC with Diff; Complete Time: 14:19 jr8 03/25 13:02 Order name: Urine Microscopic Only; Complete Time: 14:19 jr8 03/25 13:02 Order name: IV Saline Lock; Complete Time: 13:50 jr8 03/25 13:02 Order name: Labs collected and sent; Complete Time: 13:50 jr8 03/25 13:02 Order name: Urine Dipstick-Ancillary (obtain specimen); Complete Time: 13:50 jr8 Administered Medications: 13:50 Drug: Rocephin (cefTRIAXone) 1 grams Route: IV; Rate: bolus; Site: right antecubital; tr6 16:24 Follow up: Response: No adverse reaction; IV Status: Completed infusion ap3 13:50 Drug: Dilaudid (HYDROmorphone) 0.5 mg Route: IVP; Site: right antecubital; tr6 14:27 Follow up: Response: Pain is decreased tr6 14:27 Drug: Zofran (Ondansetron) 4 mg Route: IVP; Site: left antecubital; tr6 16:23 Follow up: Response: No adverse reaction ap3 16:23 Drug: Zofran (Ondansetron) 4 mg Route: IVP; Site: right antecubital; ap3 16:25 Follow up: Response: No adverse reaction ap3 Disposition Summary: 03/25/21 14:57 Discharge Ordered Location: Home jr8 Problem: new jr8 Symptoms: have improved jr8 Condition: Stable jr8 Diagnosis - Hydronephrosis with renal and ureteral calculous obstruction jr8 Followup: jr8 - With: Carl Curtis MD - When: 2 - 3 days - Reason: Recheck today's complaints, Continuance of care, Re-evaluation by your physician Discharge Instructions: - Discharge Summary Sheet jr8 - Kidney Stones jr8 - Hydronephrosis jr8 Forms: - Medication Reconciliation Form jr8 - Thank You Letter jr8 - Antibiotic Education jr8 - Prescription Opioid Use jr8 Prescriptions: - acetaminophen-codeine 300-15 mg Oral tablet - take 1 tablet by ORAL route every 4 hours As needed; 16 tablet; Refills: 0, jr8 Product Selection Permitted Addendum: 03/28/2021 06:46 Co-signature as Attending Physician, Cristino Barone MD I agree with the assessment and c king plan of care. Signatures: Dispatcher [employer] Cristino Green MD MD cha Roszak, Josh, PA PA jr8 Jessica Marie RN RN tw2 Gin Prakash RN RN ap3 Dafne Rizzo RN RN tr6
--- NOTE | 2021-03-25 14:58 | ER ---
Nurse's Notes [facility] Name: Mikey Muniz Age: 61 yrs Sex: Female : 1960 Arrival Date: 03/25/2021 Time: 11:26 Bed 24 Private MD: Meghan Puckett C Diagnosis: Hydronephrosis with renal and ureteral calculous obstruction Presentation: 03/25 11:34 Chief complaint: Patient states: i was at [facility] last night and i have a kidney stone. i tw2 have a copy of the scan. i am just not getting any better. but the pain comes and goes and i get nauseated and get dry heaves. Coronavirus screen: At this time, the client does not indicate any symptoms associated with coronavirus-19. Ebola Screen: Patient denies travel to an Ebola-affected area in the 21 days before illness onset. Initial Sepsis Screen: Does the patient meet any 2 criteria? No. Patient's initial sepsis screen is negative. Does the patient have a suspected source of infection? No. Patient's initial sepsis screen is negative. Risk Assessment: Do you want to hurt yourself or someone else? Patient reports no desire to harm self or others. Onset of symptoms was March 25, 2021. 11:34 Method Of Arrival: Ambulatory tw 11:34 Acuity: YUE 3 tw2 Triage Assessment: 11:35 General: Appears in no apparent distress. uncomfortable, slender, Behavior is calm, tw2 cooperative, appropriate for age. Pain: Complains of pain in left low back. GI: Reports lower abdominal pain, upper abdominal pain, nausea. : Reports pain in left flank(s). Historical: - Allergies: 11:35 Arimidex; tw2 11:35 Ativan; tw 11:35 Augmentin; tw 11:35 Cipro; tw 11:35 Codeine; tw 11:35 Demerol; 11:35 Fentanyl; 11:35 fluocinolone; 11:35 HYDROCODONE; 11:35 Morphine; tw2 - Home Meds: 11:35 Arava 10 mg Oral tab 1 tab once daily [Active]; aspirin 81 mg Oral TbEC 1 tab once tw2 daily [Active]; calcium [Active]; chlorahexadine [Active]; d3 [Active]; diltiazem HCl 120 mg Oral tab [Active]; exemestane 25 mg Oral tab 1 tab [Active]; fluticazone [Active]; folic acid 1 mg Oral tab [Active]; gabapentin 300 mg Oral cap 1 cap AT NIGHT for Neuropathic Pain [Active]; Magnesium [Active]; meclizine 12.5 mg Oral tab [Active]; neomycin-polymyxin B-dexameth 3.5 mg/g-10,000 unit/g-0.1 % Opht oint once daily [Active]; olopatadine [Active]; ORENCIA [Active]; pantoprazole 40 mg Oral TbEC 1 tab once daily [Active]; Prolia subcutaneous yearly [Active]; - PMHx: 11:35 anal fissure; Ankylosing Spondylitis; Cancer, Breast; Diverticulitis; gastritis; heart tw2 arrhythmia; Migraines; neuropathy; Ovarian cyst; TIA; Vertigo; - Immunization history:: Adult Immunizations. - Social history:: Smoking status: . Screenin:23 Abuse screen: Denies threats or abuse. Nutritional screening: No deficits noted. ap3 Tuberculosis screening: No symptoms or risk factors identified. Fall Risk None identified. Assessment: 14:53 General: Appears distressed, uncomfortable, Behavior is calm, cooperative, appropriate tr6 for age. Pain: Complains of pain in left flank and back and left low back. Neuro: No deficits noted. Cardiovascular: No deficits noted. Respiratory: No deficits noted. GI: Bowel sounds present X 4 quads. Abdomen is tender to palpation. : No deficits noted. : Reports pain with urination. EENT: No deficits noted. Derm: No deficits noted. Musculoskeletal: No deficits noted. Vital Signs: 11:34 BP 132 / 82; Pulse 86; Resp 18; Temp 98.1(TE); Pulse Ox 98% on R/A; Weight 53.07 kg tw2 (R); Pain 5/10; 15:50 BP 107 / 65; ap3 ED Course: 11:26 Patient arrived in ED. mr 11:27 Meghan Puckett MD is Private Physician. mr 11:35 Triage completed. tw2 11:37 Arm band placed on. tw2 12:25 Chris Parrish PA is PHCP. jr8 12:25 Cristino Barone MD is Attending Physician. jr8 12:42 Dafne Rizzo, YASMANI is Primary Nurse. tr6 14:31 Inserted saline lock: 18 gauge in right antecubital area, using aseptic technique. tr6 Blood collected. 14:57 Carl Curtis MD is Referral Physician. jr8 16:23 No provider procedures requiring assistance completed. IV discontinued, intact, ap3 bleeding controlled, No redness/swelling at site. Pressure dressing applied. 16:24 Patient has correct armband on for positive identification. Bed in low position. Call ap3 light in reach. Side rails up X2. Pulse ox on. NIBP on. Door closed. Noise minimized. Administered Medications: 13:50 Drug: Rocephin (cefTRIAXone) 1 grams Route: IV; Rate: bolus; Site: right antecubital; tr6 16:24 Follow up: Response: No adverse reaction; IV Status: Completed infusion ap3 13:50 Drug: Dilaudid (HYDROmorphone) 0.5 mg Route: IVP; Site: right antecubital; tr6 14:27 Follow up: Response: Pain is decreased tr6 14:27 Drug: Zofran (Ondansetron) 4 mg Route: IVP; Site: left antecubital; tr6 16:23 Follow up: Response: No adverse reaction ap3 16:23 Drug: Zofran (Ondansetron) 4 mg Route: IVP; Site: right antecubital; ap3 16:25 Follow up: Response: No adverse reaction ap3 Outcome: 14:57 Discharge ordered by . jr8 16:24 Discharged to home via wheelchair, with family. ap3 16:24 Condition: good 16:24 Discharge instructions given to patient, family, Instructed on discharge instructions, follow up and referral plans. medication usage, Demonstrated understanding of instructions, follow-up care, medications, Prescriptions given X 1. 16:34 Patient left the ED. ap3 Signatures: Anjelica See Josh, ISAAC GRAY jr8 Jessica Marie RN RN tw2 Gin Prakash RN RN ap3 Dafne Rizzo, YASMANI RN tr6
[2021-03-25 16:46] VITALS: TEMP 98.1; O2SAT 98
[2021-03-25 16:47] VITALS: BP 107/65
== END 2021-03-25 16:34 | disposition home or self-care (01) ==
LOC: ER 11:08
DX: N13.2 Hydronephrosis with renal and ureteral calculous obstruction (principal); Z85.3 Personal history of malignant neoplasm of breast; Z86.73 Personal history of transient ischemic attack (TIA), and cerebral infarction without residual deficits; M45.9 Ankylosing spondylitis of unspecified sites in spine; G62.9 Polyneuropathy, unspecified
CPT/HCPCS: 85025; 80048; 36415; 99284; J1170; J0696; J2405 ×2; 81003; 81015; 96365; 96366; 96375